=== PATIENT | male | born 1970 | race Caucasian/White ===

== ENCOUNTER 2019-06-15 10:10 | Inpatient (IN) ==
[2019-06-15] MEDS ORDERED: Piperacillin/Tazobactam 3.375 GM in 0.9 % Sodium Chloride Mini Bag 100 ML IVPB ONE (10:15)
--- NOTE | 2019-06-15 10:37 | Emergency Department Note ---
Disposition Clinical Impression: Cellulitis of left hand Disposition: Admitted As Inpatient Condition: Good Time of Disposition: 17:18 General Adult HPI - General Chief complaint: ED Recheck/Abnormal Lab/Rx Stated complaint: Left hand infection,S/P Surgery Time Seen by Provider: 06/15/19 10:15 Source: patient Limitations: no limitations - History of Present Illness HPI Narrative: 49 year old male presents to ED with concerns of left arm infection. Patient had a carpel tunnel release performed on May 28. Patient said procedure went well without complications. He followed up to have his sutures removed this past Friday and at that time there were no signs of infection. Over the weekend the left volar aspect of his arm became erythematous and swollen. He followed up with is primary care doctor yesterday who started the patient on antibiotics and told him to see the surgeon. Patient saw the surgeon this morning and after inspection was sent to ED for admission to hospital and subsequent OR for debridement. Patient states the area is painful, he denies fevers or chills. Pain Scale: 8 - Related Data Home Medications Medication Instructions Recorded Confirmed Bupropion HCl [Wellbutrin Xl] 300 mg PO QAM 03/26/19 06/15/19 Furosemide [Lasix] 80 mg PO BID 03/26/19 06/15/19 Lovastatin 40 mg PO HS 03/26/19 06/15/19 Omeprazole [PriLOSEC] 20 mg PO DAILY 03/26/19 06/15/19 Potassium Chloride [Klor-Con 10] 20 meq PO DAILY 03/26/19 06/15/19 Ramelteon [Rozerem] 8 mg PO HS PRN 03/26/19 06/15/19 Tizanidine HCl 4 mg PO TID PRN 03/26/19 06/15/19 Topiramate 50 mg PO BID 03/26/19 06/15/19 metOLazone [Zaroxolyn] 2.5 mg PO DAILY PRN 03/26/19 06/15/19 Diclofenac Sodium [Voltaren] 1 applic TP QID PRN 05/21/19 06/15/19 Fluticasone Propionate Nasal 1 spray NS DAILY PRN 05/21/19 06/15/19 [Flonase] Ibuprofen 800 mg PO TID PRN 05/21/19 06/15/19 Loratadine [Allergy Relief] 10 mg PO DAILY 05/21/19 06/15/19 Cephalexin [Keflex] 500 mg PO DAILY 06/15/19 06/15/19 Previous Rx's Medication Instructions Recorded Hydrocodone/Acetaminophen [Tarzan 1 each PO Q6H PRN 2 Days #8 tablet 05/28/19 5-325 Tablet] Allergies Allergy/AdvReac Type Severity Reaction Status Date / Time omeprazole Allergy Hives "in Verified 06/15/19 10:15 high doses" aspirin AdvReac Vomiting Verified 06/15/19 10:15 ibuprofen AdvReac Gastrointestinal Verified 06/15/19 10:15 Upset Past Medical History - Past Medical History Medical history: Reports: arthritis, GERD, hyperlipidemia, hypertension Surgical history: Reports: herniorrhaphy, vascular surgery, other Psychiatric history: Reports: anxiety, depression - Social History Smoking Status: Never smoker Smokeless Tobacco Status: No Alcohol use: Reports: none Drug use: Reports: none Physical Exam Extremity: Left volar aspect of forearm is erythematous and edematous from wrist extending up [address] of his forearm. Radial pulse +2/4 bilaterally. [employer] strength intact bilaterally. Movement of left digits are limited by edema and pain. Sensation intact bilaterally upper extremity. - General Limitations: no limitations General appearance: alert, in no apparent distress Course Vital Signs Temperature 98.9 F 06/15/19 10:12 Pulse Rate 87 06/15/19 10:12 Respiratory Rate 16 06/15/19 10:12 Blood Pressure 161/94 06/15/19 10:12 O2 Sat by Pulse Oximetry 97 06/15/19 10:12 Temperature 98.9 F 06/15/19 10:12 Pulse Rate 87 06/15/19 10:12 Respiratory Rate 16 06/15/19 10:12 Blood Pressure 161/94 06/15/19 10:12 O2 Sat by Pulse Oximetry 97 06/15/19 10:12 Oxygen Delivery Oxygen Delivery Room Air Medical Decision Making - Lab Data Result diagrams: 06/15/19 10:43 06/15/19 10:43
[2019-06-15 11:02] LABS: Basophils # 0.1 K/mcL (0.0-0.2); Basophils % 0.4 %; Eosinophils # 0.1 K/mcL (0.0-0.6); Hemoglobin 14.7 g/dL (12.9-16.9); Immature Granulocytes % 0.6 % (0-4); Lymphocytes # 1.1 K/mcL (0.6-4.6); Lymphocytes % 7.8 %; Mean Corpuscular HGB Conc 32.7 g/dL (31.6-35.5); Mean Corpuscular Volume 85.7 fL (83.0-100.0); Monocytes % 7.4 %; Neutrophils # 11.5 K/mcL (1.6-8.9); Platelet Count 204 K/mcL (140-400); Red Blood Count 5.25 M/mcL (4.19-5.50); Red Cell Distribution Width 13.2 % (11.5-14.5); Segmented Neutrophils % 82.8 %; White Blood Count 13.9 K/mcL (4.3-11.1)
[2019-06-15 11:09] LABS: INR 1.1; Prothrombin Time 12.3 Seconds (9.4-12.1)
[2019-06-15 11:11] LABS: Activated Partial Thrombo Time 32.3 Seconds (26.0-36.0)
[2019-06-15 11:29] LABS: Alanine Aminotransferase 12 Units/L (7-52); Albumin 4.7 g/dL (3.5-5.7); Albumin/Globulin Ratio 1.5 (1.1-2.2); Alkaline Phosphatase 82 Units/L (34-104); Aspartate Amino Transferase 12 Units/L (13-39); BUN/Creatinine Ratio 19 (6-26); Bilirubin,Direct 0.2 mg/dL (0.0-0.2); Bilirubin,Indirect 0.8 mg/dL (0.0-1.2); Blood Urea Nitrogen 18 mg/dL (6-20); Calcium 10.2 mg/dL (8.6-10.3); Carbon Dioxide 24 mEq/L (23-29); Chloride 102 mEq/L (98-107); Globulin 3.2 g/dL (2.4-3.5); Glucose 138 mg/dL (70-105); Magnesium 2.2 mg/dL (1.6-2.6); Osmolality,Calculated 286 (280-300); Phosphorous 2.8 mg/dL (2.7-4.5); Potassium 3.7 mEq/L (3.5-5.1); Sodium 136 mEq/L (136-145); Total Protein 7.9 g/dL (6.4-8.9); Troponin I < 0.03 ng/mL (< 0.04); eGFR For African Americans > 60 (> 60); eGFR For Non-African Americans > 60 (> 60)
[2019-06-15] MEDS: 0.9 % Sodium Chloride 1,000 ML IVC SCH (11:40)
[2019-06-15] MEDS ORDERED: *HR* FentaNYL (PF) 100 MCG/2 ML VIAL IVP ONE ×2 (11:49→22:59)
--- NOTE | 2019-06-15 11:54 | Emergency Department Note ---
Disposition Clinical Impression: Cellulitis of left hand Disposition: Admitted As Inpatient Condition: Good Time of Disposition: 11:51 General Adult HPI - General Chief complaint: ED Recheck/Abnormal Lab/Rx Stated complaint: Left hand infection,S/P Surgery Time Seen by Provider: 06/15/19 10:15 Source: patient Limitations: no limitations Nursing Notes Reviewed: Yes Vital Signs Reviewed: Yes - History of Present Illness HPI Narrative: 49 year old male presnets to the ED with complaints of left hand cellulitis that has been progressively getting worse since his suture removal from left carpal release from Dr. Denney from last week. PAtient has been on outpatinet therapy with keflex and it has not been improving. Patient state that he is now having problems with moving his left hand and was seen by Dr. Denney today and asked to come to the ED for admission becaue he plans to do a debridement surigcally. He has been otheriwse chlls with subjective fevers Pain Scale: 8 - Related Data Home Medications Medication Instructions Recorded Confirmed Bupropion HCl [Wellbutrin Xl] 300 mg PO QAM 03/26/19 06/15/19 Furosemide [Lasix] 80 mg PO BID 03/26/19 06/15/19 Lovastatin 40 mg PO HS 03/26/19 06/15/19 Omeprazole [PriLOSEC] 20 mg PO DAILY 03/26/19 06/15/19 Potassium Chloride [Klor-Con 10] 20 meq PO DAILY 03/26/19 06/15/19 Ramelteon [Rozerem] 8 mg PO HS PRN 03/26/19 06/15/19 Tizanidine HCl 4 mg PO TID PRN 03/26/19 06/15/19 Topiramate 50 mg PO BID 03/26/19 06/15/19 metOLazone [Zaroxolyn] 2.5 mg PO DAILY PRN 03/26/19 06/15/19 Diclofenac Sodium [Voltaren] 1 applic TP QID PRN 05/21/19 06/15/19 Fluticasone Propionate Nasal 1 spray NS DAILY PRN 05/21/19 06/15/19 [Flonase] Ibuprofen 800 mg PO TID PRN 05/21/19 06/15/19 Loratadine [Allergy Relief] 10 mg PO DAILY 05/21/19 06/15/19 Cephalexin [Keflex] 500 mg PO DAILY 06/15/19 06/15/19 Previous Rx's Medication Instructions Recorded Hydrocodone/Acetaminophen [Blairs 1 each PO Q6H PRN 2 Days #8 tablet 05/28/19 5-325 Tablet] Allergies Allergy/AdvReac Type Severity Reaction Status Date / Time omeprazole Allergy Hives "in Verified 06/15/19 10:15 high doses" aspirin AdvReac Vomiting Verified 06/15/19 10:15 ibuprofen AdvReac Gastrointestinal Verified 06/15/19 10:15 Upset Constitutional: Reports: chills, weakness. Denies: fever, weight change Eyes: Denies: eye pain, eye discharge, vision change ENT ED: Denies: ear pain, throat pain, dental pain, hearing loss, epistaxis, congestion, dysphagia Cardiovascular: Denies: chest pain, palpitations, dyspnea on exertion, edema, syncope Respiratory: Denies: cough, dyspnea, wheezes, hemoptysis, stridor Gastrointestinal: Denies: abdominal pain, nausea, vomiting, diarrhea, c onstipation, hematemesis, melena, hematochezia Genitourinary: Denies: urgency, dysuria, frequency, hematuria Musculoskeletal: Reports: as per HPI. Denies: back pain, neck pain, arthralgia, myalgia Integumentary: Denies: rash, abrasion, lesions Neurological: Denies: headache, weakness, numbness, paresthesias, confusion, abnormal gait, vertigo Psychiatric: Denies: anxiety, depression, suicidal thoughts, homicidal thoughts, auditory hallucinations, visual hallucinations Endocrine: Denies: fatigue Hematological/Lymphatic: Denies: easy bleeding, easy bruising Allergic/Immunologic: Denies: facial swelling, urticaria Past Medical History - Past Medical History Medical history: Reports: arthritis, GERD, hyperlipidemia, hypertension Surgical history: Reports: herniorrhaphy, vascular surgery, other Psychiatric history: Reports: anxiety, depression - Social History Smoking Status: Never smoker Smokeless Tobacco Status: No Alcohol use: Reports: none Drug use: Reports: none Physical Exam - General Limitations: no limitations General appearance: alert, in no apparent distress - Head Head exam: atraumatic, normocephalic, normal inspection - Eye Eye exam: Present: normal appearance, PERRL, EOMI - Expanded Eye Exam Pupils: Bilateral: reactive - ENT ENT exam: normal exam, normal oropharynx, mucous membranes moist - Expanded ENT Exam External ear exam: Present: normal external inspection Mouth exam: Present: normal external inspection Teeth exam: Present: normal inspection Throat exam: Present: normal inspection - Neck Neck exam: Present: normal inspection, full ROM, trachea midline - Chest Chest inspection: Present: normal inspection, symmetric chest wall rise - Respiratory Respiratory exam: Present: normal lung sounds bilaterally - Cardiovascular Cardiovascular exam: Present: regular rate, normal rhythm, normal heart sounds - Abdominal Exam Abdominal exam: Present: soft, Non-Tender. Absent: tenderness, distention, guarding, rebound, rigidity - Extremities Exam Extremities exam: Present: normal inspection, full ROM. Absent: tenderness, pedal edema - Expanded Upper Extremity Exam Shoulder exam: Present: normal inspection, full ROM Arm exam: Present: normal inspection, full ROM Elbow exam: Present: normal inspection, full ROM Forearm/Wrist exam: Present: normal inspection, full ROM, tenderness, erythema Hand exam: Present: normal inspection, full ROM Vascular exam: Normal: capillary refill, radial pulse - Expanded Lower Extremity Exam Hip/Pelvis exam: Present: normal inspection, full ROM Upper leg exam: Present: normal inspection, full ROM Knee exam: Present: normal inspection, full ROM Lower leg exam: Present: normal inspection, full ROM Ankle exam: Present: normal inspection, full ROM Foot/toe exam: Present: normal inspection, full ROM Neurovascular/Tendon exam: Absent: motor deficit, sensory deficit, tendon deficit - Back Exam Back exam: Present: normal inspection, full ROM. Absent: tenderness - Neurological Exam Neurological exam: Present: alert, oriented X3 - Expanded Neurological Exam Patient oriented to: Present: person, place, time Coma Scale Eye Opening: Spontaneous Coma Scale Motor Response: Obeys Commands Coma Scale Verbal Response: Oriented Coma Scale Total: 15 - Psychiatric Psychiatric exam: Present: normal affect, normal mood - Skin Skin exam: Present: warm, dry, intact, normal color - Expanded Skin Exam 1 - draining erythematous cellutlis which has been marked with purple pen with induration and restriction in movement of flextion and extension of his digits secndary to pain, radial pulse strong Course Course Narrative: Dr. Antonio has given report to the charge nurse and state that he will see esther in consult with admission to medicine. I will obtain [facility] infectious labs and has his micro grew out liklely staph or MRSA will start vanc/zosyn - Consultations Consultation #1: disccused case with Dr. Anguiano who has accepted esther for admission. Time: 11:50 Vital Signs Temperature 98.9 F 06/15/19 10:12 Pulse Rate 87 06/15/19 10:12 Respiratory Rate 16 06/15/19 10:12 Blood Pressure 161/94 06/15/19 10:12 O2 Sat by Pulse Oximetry 97 06/15/19 10:12 Temperature 98.9 F 06/15/19 10:12 Pulse Rate 87 06/15/19 11:45 Respiratory Rate 20 06/15/19 11:45 Blood Pressure 142/78 06/15/19 11:45 O2 Sat by Pulse Oximetry 97 06/15/19 11:45 Oxygen Delivery Oxygen Delivery Room Air Medical Decision Making - Medical Records Medical records reviewed: Yes I reviewed the patient's medical records. - Lab Data Lab results reviewed: Yes I reviewed the patient's lab results. Result diagrams: 06/15/19 10:43 06/15/19 10:43 Lab Results 06/15/19 06/15/19 06/15/19 Range/Units 10:43 10:43 10:43 WBC 13.9 H (4.3-11.1) K/mcL RBC 5.25 (4.19-5.50) M/mcL Hgb 14.7 (12.9-16.9) g/dL Hct 45.0 (37.5-50.1) % MCV 85.7 (83.0-100.0) fL MCH 28.0 (28.0-33.3) pg MCHC 32.7 (31.6-35.5) g/dL RDW 13.2 (11.5-14.5) % Plt Count 204 (140-400) K/mcL MPV 12.0 (9.4-12.4) fL Immature Gran % 0.6 (0-4) % Seg Neutrophils % 82.8 % Lymphocytes % 7.8 % Monocytes % 7.4 % Eosinophils % 1.0 % Basophils % 0.4 % Neutrophils # 11.5 H (1.6-8.9) K/mcL Lymphocytes # 1.1 (0.6-4.6) K/mcL Monocytes # 1.0 (0.0-1.3) K/mcL Eosinophils # 0.1 (0.0-0.6) K/mcL Basophils # 0.1 (0.0-0.2) K/mcL PT 12.3 H (9.4-12.1) Seconds INR 1.1 APTT 32.3 (26.0-36.0) Seconds Sodium 136 (136-145) mEq/L Potassium 3.7 (3.5-5.1) mEq/L Chloride 102 (98-107) mEq/L Carbon Dioxide 24 (23-29) mEq/L BUN 18 (6-20) mg/dL Creatinine 0.97 (0.70-1.30) mg/dL Est GFR ( Amer) > 60 (> 60) Est GFR (Non-Af Amer) > 60 (> 60) BUN/Creatinine Ratio 19 (6-26) Glucose 138 H (70-105) mg/dL Est Mean Plasma Glucose mg/dl Hemoglobin A1c ( - 5.6) % Calculated Osmolality 286 (280-300) Lactic Acid (0.5-2.2) mmol/L Calcium 10.2 (8.6-10.3) mg/dL Phosphorus 2.8 (2.7-4.5) mg/dL Magnesium 2.2 (1.6-2.6) mg/dL Total Bilirubin 1.0 (0.3-1.0) mg/dL Direct Bilirubin 0.2 (0.0-0.2) mg/dL Indirect Bilirubin 0.8 (0.0-1.2) mg/dL AST 12 L (13-39) Units/L ALT 12 (7-52) Units/L Alkaline Phosphatase 82 (34-104) Units/L Troponin I < 0.03 (< 0.04) ng/mL Serum Total Protein 7.9 (6.4-8.9) g/dL Albumin 4.7 (3.5-5.7) g/dL Globulin 3.2 (2.4-3.5) g/dL Albumin/Globulin Ratio 1.5 (1.1-2.2) 06/15/19 06/15/19 Range/Units 10:43 10:43 WBC (4.3-11.1) K/mcL RBC (4.19-5.50) M/mcL Hgb (12.9-16.9) g/dL Hct (37.5-50.1) % MCV (83.0-100.0) fL MCH (28.0-33.3) pg MCHC (31.6-35.5) g/dL RDW (11.5-14.5) % Plt Count (140-400) K/mcL MPV (9.4-12.4) fL Immature Gran % (0-4) % Seg Neutrophils % % Lymphocytes % % Monocytes % % Eosinophils % % Basophils % % Neutrophils # (1.6-8.9) K/mcL Lymphocytes # (0.6-4.6) K/mcL Monocytes # (0.0-1.3) K/mcL Eosinophils # (0.0-0.6) K/mcL Basophils # (0.0-0.2) K/mcL PT (9.4-12.1) Seconds INR APTT (26.0-36.0) Seconds Sodium (136-145) mEq/L Potassium (3.5-5.1) mEq/L Chloride (98-107) mEq/L Carbon Dioxide (23-29) mEq/L BUN (6-20) mg/dL Creatinine (0.70-1.30) mg/dL Est GFR ( Amer) (> 60) Est GFR (Non-Af Amer) (> 60) BUN/Creatinine Ratio (6-26) Glucose (70-105) mg/dL Est Mean Plasma Glucose 128 mg/dl Hemoglobin A1c 6.1 H ( - 5.6) % Calculated Osmolality (280-300) Lactic Acid 0.7 (0.5-2.2) mmol/L Calcium (8.6-10.3) mg/dL Phosphorus (2.7-4.5) mg/dL Magnesium (1.6-2.6) mg/dL Total Bilirubin (0.3-1.0) mg/dL Direct Bilirubin (0.0-0.2) mg/dL Indirect Bilirubin (0.0-1.2) mg/dL AST (13-39) Units/L ALT (7-52) Units/L Alkaline Phosphatase (34-104) Units/L Troponin I (< 0.04) ng/mL Serum Total Protein (6.4-8.9) g/dL Albumin (3.5-5.7) g/dL Globulin (2.4-3.5) g/dL Albumin/Globulin Ratio (1.1-2.2) - Radiology Data Radiology results reviewed: Yes I reviewed the patient's radiology results. - EKG Data EKG #1 EKG attestation: Yes I reviewed and interpreted this EKG. EKG results narrative: NSR with rate of 51. NO STEMI. normal intervals, no change from10/16/15. 104
[2019-06-15] MEDS ORDERED: Naloxone 0.4 MG/ML INJ IVP PRN ×2 (11:59→22:59)
[2019-06-15] MEDS ORDERED: Ondansetron 4 MG/2 ML VIAL IVP PRN ×2 (11:59→22:59)
[2019-06-15] MEDS ORDERED: 0.9 % Sodium Chloride 1,000 ML IVC SCH (12:00)
[2019-06-15] MEDS ORDERED: tiZANidine 4 MG TABLET PO PRN ×2 (12:02→22:59)
[2019-06-15] MEDS ORDERED: Fluticasone Propionate Nasal 50 MCG/SPRAY BOTTLE NS PRN (12:02)
[2019-06-15] MEDS ORDERED: D5% in Water 1,000 ML IVC PRN ×2 (12:03→22:59)
[2019-06-15] MEDS ORDERED: Dextrose Gel 15 GM/37.5 ML TUBE PO PRN ×4 (12:03→22:59)
[2019-06-15] MEDS ORDERED: *HR* Dextrose 50 % in Water (Syg) 50 ML SYRINGE IVP PRN ×2 (12:03→22:59)
--- NOTE | 2019-06-15 12:06 | Internal Med History&Physical ---
Date of Encounter: 06/15/19 Time of Encounter: 11:50 Internal Medicine - H&P: HPI Chief complaint: L arm pain Admitted From: Emergency Dept Plans for Post Hospital Care: Home History of present illness: Mr. Orozco is a 49 year old male with hx chronic lymphedema presented to ED from ortho office due to swollen and painful L arm. Mr Orozco had L carpel tunnel surgery on 05/28. He had no significant issues during recovery. He followed up last Friday and had stitches removed. Starting Friday he noticed some vague swelling and pain in L arm as well as malaise. He felt feverish and chilled. Had appt with PCP Friday and cx taken. Started on PO Keflex. Followed up with ortho today and symptoms worse. Pus expressed from wound. Has pain down hand and up to elbow. Pt sent to ED for admission for IV abx and surgical debridement. At this time his complaints are pain in arm and hunger. Past Med Surg Social Fam HX - Past Medical History Medical history: arthritis, GERD, hyperlipidemia, hypertension Additional medical history: back degen., herniated disc. sleep apnea, neuropathy, lymphedema Psychiatric history: anxiety, depression - Past Surgical History Surgical History: herniorrhaphy, vascular surgery, other Additional surgical history: Spinal Cord Stimulator - Social History Smoking Status: Never smoker Smokeless Tobacco Status: No Alcohol use: none Drug use: none - Family History Mother Living Status: Hx Family Cardiac Disorders: No Hx Family Respiratory Disorders: No Hx Family Cancer: No Hx Family GI Disorders: No Hx Family Endocrine Disorder: No Hx Family Neuromuscular Disorders: No Hx Family Neurologic Disorders: No Hx Family HEENT Disorders: No Hx Family Autoimmune Disorders: No Father Hx Family Endocrine Disorder: Yes (Diabetes) Internal Medicine - H&P: Meds Bupropion HCl [Wellbutrin Xl] 300 mg PO QAM 03/26/19 [History] Furosemide [Lasix] 80 mg PO BID 03/26/19 [History] Lovastatin 40 mg PO HS 03/26/19 [History] Omeprazole [PriLOSEC] 20 mg PO DAILY 03/26/19 [History] Potassium Chloride [Klor-Con 10] 20 meq PO DAILY 03/26/19 [History] Ramelteon [Rozerem] 8 mg PO HS PRN 03/26/19 [History] Tizanidine HCl 4 mg PO TID PRN 03/26/19 [History] Topiramate 50 mg PO BID 03/26/19 [History] metOLazone [Zaroxolyn] 2.5 mg PO DAILY PRN 03/26/19 [History] Diclofenac Sodium [Voltaren] 1 applic TP QID PRN 05/21/19 [History] Fluticasone Propionate Nasal [Flonase] 1 spray NS DAILY PRN 05/21/19 [History] Ibuprofen 800 mg PO TID PRN 05/21/19 [History] Loratadine [Allergy Relief] 10 mg PO DAILY 05/21/19 [History] Hydrocodone/Acetaminophen [[place]ity 5-325 Tablet] 1 each PO Q6H PRN 2 Days #8 tablet 05/28/19 [Rx] Cephalexin [Keflex] 500 mg PO DAILY 06/15/19 [History] Allergy/AdvReac Type Severity Reaction Status Date / Time omeprazole Allergy Hives "in Verified 06/15/19 10:15 high doses" aspirin AdvReac Vomiting Verified 06/15/19 10:15 ibuprofen AdvReac Gastrointestinal Verified 06/15/19 10:15 Upset All Systems PM: A 10-system review of systems was performed and is negative for pertinent findings except as documented above in the HPI. - Constitutional Constitutional: chills, fever(s), malaise - EENT Eyes: no diplopia, no pain Ears: no decreased hearing Nose, mouth and throat: no dry mouth, no sinus pain - Cardiovascular Cardiovascular ROS IM: edema, no chest pain, no diaphoresis, no dyspnea, no dyspnea on exertion, no orthopnea, no paroxysmal nocturnal dyspnea - Respiratory Respiratory: no cough, no dyspnea, no dyspnea on exertion, no wheezing, no chest congestion - Gastrointestinal Gastrointestinal: no abdominal pain, no diarrhea, no nausea, no vomiting - Genitourinary Genitourinary ROS male: no difficulty urinating - Musculoskeletal Musculoskeletal ROS IM: joint swelling, limited range of motion - Integumentary Integumentary IM: erythema - Neurological Neurological ROS: no dizziness, no vertigo - Endocrine Endocrine IM: no excessive sweating - Hematologic/Lymphatic Hematologic/Lymphatic: no easy bleeding - Allergic/Immunologic Allergic/Immunologic: no itchy eyes - Constitutional Vitals: Temp Pulse Resp BP Pulse Ox 98.9 F 87 20 142/78 97 06/15/19 10:12 06/15/19 11:45 06/15/19 11:45 06/15/19 11:45 06/15/19 11:45 General appearance: Present: A&O X 3, answers questions appropriately Exam: See below - Head Head exam: Present: atraumatic, normocephalic - Eye Eye exam: Present: EOMI, conjuntiva pink - ENT ENT exam: Present: mucous membranes moist - Neck Neck exam general surgery: Present: normal inspection, supple. Absent: nuchal rigidity - Respiratory Respiratory exam: Present: CTAB. Absent: rales, rhonchi, wheezes - Cardiovascular Cardiovascular exam: Present: RRR. Absent: tachycardia - GI/Abdominal GI/Abdominal exam: Present: normal bowel sounds, soft. Absent: tenderness - Extremities Exam Extremities exam: Present: joint swelling, tenderness, warm Additional comments: LUE with edema to elbow. Erythema on forearm. Pain with movement of fingers and palpation of brachioradialis tendon. - Incison Incision: Present: draining, red, swollen, purulent - Neurological Exam Neurological exam: Present: alert, oriented X3, no focal deficits - Psychiatric Psychiatric exam: Present: normal affect, normal mood - Skin Skin exam: Present: erythema Internal Med - H&P Results - Labs CBC & Chem 7: 06/15/19 10:43 06/15/19 10:43 Labs: Short CBC 06/15/19 Range/Units 10:43 WBC 13.9 H (4.3-11.1) K/mcL Hgb 14.7 (12.9-16.9) g/dL Hct 45.0 (37.5-50.1) % Plt Count 204 (140-400) K/mcL Neutrophils # 11.5 H (1.6-8.9) K/mcL BMP 06/15/19 10:43 Sodium 136 Potassium 3.7 Chloride 102 Carbon Dioxide 24 BUN 18 Creatinine 0.97 Glucose 138 H Calcium 10.2 Cardiac Enzymes 06/15/19 Range/Units 10:43 Troponin I < 0.03 (< 0.04) ng/mL Liver Function 06/15/19 Range/Units 10:43 Total Bilirubin 1.0 (0.3-1.0) mg/dL Direct Bilirubin 0.2 (0.0-0.2) mg/dL AST 12 L (13-39) Units/L ALT 12 (7-52) Units/L Alkaline Phosphatase 82 (34-104) Units/L Albumin 4.7 (3.5-5.7) g/dL - Assessment and Plan (1) Suppurative tenosynovitis of flexor tendon of left hand Current Visit: Yes Status: Acute Assessment and plan: Pt presented to ED from ortho office due to drainage and swelling from recent surgical wound. Exam consistent with tenosynovitis Admit to med surg. IV Zosyn and Vanc - initial gram stain from yesterday showing gram positive cocci and has failed Keflex as outpatient. Most likely MRSA. NPO for surgery. Anticipate will need prolonged course of IV abx. Will be hospitalized greater than 2 midnights - placed inpatient status. (2) Lymphedema of both lower extremities Current Visit: No Status: Chronic Assessment and plan: Chronic issue (3) Cellulitis Current Visit: No Status: Acute Assessment and plan: Associated with wound infection. Qualifiers: Site of cellulitis: extremity Site of cellulitis of extremity: upper extremity Laterality: left Qualified Code(s): L03.114 - Cellulitis of left upper limb (4) Morbid obesity with BMI of 45.0-49.9, adult Current Visit: Yes Status: Chronic Assessment and plan: Chronic issue - Time Spent With Patient Total time spent is greater than 50% in coordination of care (as documented) at patient's floor/unit and/or counseling patient:
[2019-06-15 12:41] LABS: Estimated Average Glucose 128 mg/dl
[2019-06-15 15:02] LABS: C-Reactive Protein 236 mg/L (Less than 10)
[2019-06-15] MEDS ORDERED: Isovue-370 500 ML BOTTLE IVP ONE (15:23)
--- NOTE | 2019-06-15 16:17 | Electrocardiograph Report ---
[place] [id number] Test Date: 2019-06-15 Pat Name: Garrison Orozco Department: [id number] Room: 3A43 Gender: M [employer]: : [id number] Requested By: Georgia Rocha Order Number: [id number] Reading MD: Antonio Morrison Measurements Intervals [place] Rate: 90 P: 50 LA: 166 QRS: 28 QRSD: 100 T: 5 QT: 352 QTc: 431 Interpretive Statements Sinus rhythm Electronically Signed On 06-15-2019 16:16:14 EDT by Antonio Morrison
--- NOTE | 2019-06-15 16:40 | Orthopedics Progress Note ---
Date of Encounter: 06/15/19 Time of Encounter: 16:38 Subjective Interval history: S: Resting in bed comfortably Expected pain to the volar left forearm/wrist area O: Afebrile on the vital signs are stable Gross purulence emanating from the surgical wound Moderate generalized cellulitis to the volar wrist region to mid forearm The patient can actively flex and extend all digits, extend the thumb, cross the index and long fingers, make an okay sign, and oppose the thumb. The fingertips are all grossly sensate and well-perfused, and the radial artery pulse is 2+. A: Left volar wrist infection/abscess P: Plan is to proceed to the operating room for incision, drainage, irrigation, debridement of the left wrist volarly. The risks discussed included but were not limited to stiffness, bleeding, infection, blood clots, damage to neurovascular structures, tendons, ligaments, and bone. Also discussed was the risk of continued symptoms and possible need for further procedures. I did dis cuss the anesthesia risks including stroke, heart attack, and . I did discuss the reasonable, foreseeable postoperative course with the patient. The patient did wish to proceed and consent was obtained. I have reviewed each of the pertinent components of this chart and any other pertinent medical component(s) including but not limited to pertinent application of the chief complaint, history of present illness, current medication, medical history, allergies, family history, medical history, surgical history, social history, review of systems, vital signs, and any other portion of the pertinent patient medical record directly or indirectly involved with this patient care that is pertinent based on my medical decision process. ASHOK Watkins Objective Vital signs: Vital Signs Temp Pulse Resp BP Pulse Ox 06/15/19 15:38 98.5 F 77 16 130/82 97 06/15/19 11:45 87 20 142/78 97 06/15/19 10:12 98.9 F 87 16 161/94 97 Intake and Output 06/15/19 06/15/19 06/15/19 07:59 15:59 23:59 Intake Total 1000 / 1000 Balance 1000 / 1000 Intake: IV Fluids 1000 / 1000 0.9 % Sodium Chloride 1,000 ML 1000 / 1000 @ 999 mls/hr IVC .Q1H1M JOY Rx# :[id number] Zosyn 3.375 GM In 0.9 % Sodium 0 / 0 Chloride (Mini-Bag +) 100 ML @ 25 mls/hr IVPB ONCE ONE Rx#: [id number] Other: Weight 168.736 kg Patient Weight 06/15/19 23:59 Weight 168.736 kg - Labs CBC & BMP: 06/15/19 10:43 06/15/19 10:43 Labs: Abnormal lab results WBC 13.9 K/mcL (4.3-11.1) H 06/15/19 10:43 Neutrophils # 11.5 K/mcL (1.6-8.9) H 06/15/19 10:43 PT 12.3 Seconds (9.4-12.1) H 06/15/19 10:43 Glucose 138 mg/dL (70-105) H 06/15/19 10:43 Hemoglobin A1c 6.1 % (-5.6) H 06/15/19 10:43 AST 12 Units/L (13-39) L 06/15/19 10:43 C-Reactive Protein 236 mg/L (Less than 10) H 06/15/19 10:43 Consult Discharge Plan - Plan Referrals: Miir Cisneros, WATER SERVER [Primary Care Provider] -
[2019-06-15] MEDS ORDERED: Insulin LISPRO 300 UNITS/3 ML VIAL SQ SCH (18:00)
--- NOTE | 2019-06-15 18:15 | Anesthesia Evaluation PreOp ---
Date of Encounter: 06/15/19 Time of Encounter: 18:13 - Past History Planned Operation: I&D LEFT WRIST Cardiac History: CHF, HTN, Hyperlipidemia Pulmonary History: IVAN Dx (BIPAP) CREDENTIALER History: Other (ANXIETY, DEPRESSION, CERVICAL & LUMBAR DDD WITH CHRONIC PAIN) Other Medical History: GERD, Other (OBESITY) Anesthesia History: No Prior Anesthetic Complications, Past Anesthesia Alcohol Use: none Drug use: none Medications and Allergies Bupropion HCl [Wellbutrin Xl] 300 mg PO QAM 03/26/19 [History] Furosemide [Lasix] 80 mg PO BID 03/26/19 [History] Lovastatin 40 mg PO HS 03/26/19 [History] Omeprazole [PriLOSEC] 20 mg PO DAILY 03/26/19 [History] Potassium Chloride [Klor-Con 10] 20 meq PO DAILY 03/26/19 [History] Ramelteon [Rozerem] 8 mg PO HS PRN 03/26/19 [History] Tizanidine HCl 4 mg PO TID PRN 03/26/19 [History] Topiramate 50 mg PO BID 03/26/19 [History] metOLazone [Zaroxolyn] 2.5 mg PO DAILY PRN 03/26/19 [History] Diclofenac Sodium [Voltaren] 1 applic TP QID PRN 05/21/19 [History] Fluticasone Propionate Nasal [Flonase] 1 spray NS DAILY PRN 05/21/19 [History] Ibuprofen 800 mg PO TID PRN 05/21/19 [History] Loratadine [Allergy Relief] 10 mg PO DAILY 05/21/19 [History] Hydrocodone/Acetaminophen [Baker 5-325 Tablet] 1 each PO Q6H PRN 2 Days #8 tablet 05/28/19 [Rx] Cephalexin [Keflex] 500 mg PO DAILY 06/15/19 [History] Allergy/AdvReac Type Severity Reaction Status Date / Time omeprazole Allergy Hives "in Verified 06/15/19 10:15 high doses" aspirin AdvReac Vomiting Verified 06/15/19 10:15 ibuprofen AdvReac Gastrointestinal Verified 06/15/19 10:15 Upset - Meds/Allergy Pre-op Review Medications Reviewed: Yes Allergies Reviewed: Yes Beta Blockers on Current Med List: No Anesthesia Results - Labs 06/15/19 10:43 06/15/19 10:43 Anesthesia Exam Vital Signs/O2 Sat/Glucose, Most Recent Temp Pulse Resp BP Pulse Ox 98.5 F 77 16 130/82 97 06/15/19 15:38 06/15/19 15:38 06/15/19 15:38 06/15/19 15:38 06/15/19 15:38 Blood Glucose* 111 Weight: 169 KG - BMI 48 NPO (# of Hours): 8 - HEENT Mallampati: IV Teeth: Missing, Poor dentition - Cardiac Rhythm: Regular - Pulmonary Breath Sounds: bilateral Clear Anesthesia Assess/Plan ASA Score: 3 Anesthetic Plan: General Monitoring Plan: Standard Monitors Recovery Plan: PACU
[2019-06-15] MEDS ORDERED: *HR* FentaNYL (PF) 100 MCG/2 ML VIAL ONE (19:11)
[2019-06-15] MEDS ORDERED: *HR* Propofol 200 MG/20 ML VIAL IVP ONE (19:12)
[2019-06-15] MEDS ORDERED: Lidocaine -MPF 2% 2 ML VIAL ONE (19:13)
[2019-06-15] MEDS ORDERED: Piperacillin/Tazobactam 3.375 GM in 0.9 % Sodium Chloride Mini Bag 100 ML IVPB SCH (20:00)
[2019-06-15] MEDS ORDERED: Bupivacaine/EPI 1:200k 0.5%PF 10 ML VIAL ONE (20:42)
[2019-06-15] MEDS ORDERED: *HR* OxyCODONE Immed Rel 5 MG TABLET PO PRN (20:52)
[2019-06-15] MEDS ORDERED: Acetaminophen IV 1,000 MG/100 ML INFUS..BTL IVPB ONE ×2 (20:52→22:59)
[2019-06-15] MEDS ORDERED: *HR* HYDROmorphone (PF) 1 MG/ML SYRINGE IVP PRN ×2 (20:52→22:59)
[2019-06-15] MEDS ORDERED: *HR* Promethazine 25 MG/ML VIAL IVP PRN ×2 (20:52→22:59)
[2019-06-15] MEDS ORDERED: Albuterol 2.5 MG/3 ML NEBULIZER IH ONE ×2 (20:52→22:59)
[2019-06-15] MEDS ORDERED: Ondansetron 4 MG/2 ML VIAL IVP ONE ×2 (20:52→22:59)
[2019-06-15] MEDS ORDERED: Topiramate 25 MG TABLET PO SCH (21:00)
[2019-06-15] MEDS ORDERED: Ondansetron 4 MG/2 ML VIAL ONE (21:07)
[2019-06-15] MEDS ORDERED: *HR* HYDROMORPHONE 2 MG/ML VIAL ONE (21:08)
[2019-06-15] MEDS ORDERED: *HR* Heparin 5,000 UNIT/ML VIAL SQ SCH (22:00)
--- NOTE | 2019-06-15 22:21 | Orthopedic Operative Note ---
Date of procedure: 06/15/19 Procedure: OPERATIVE REPORT SURGEON: Esteban Denney MD PREOPERATIVE DIAGNOSIS: Postop infection after left endoscopic carpal tunnel release POSTOPERATIVE DIAGNOSIS: Left deep forearm abscess PROCEDURE: Incision, drainage, irrigation, debridement of the left forearm ANESTHESIA: Gen. anesthesia SPECIMENS: Forearm swabs for aerobic and anaerobic cultures PREOPERATIVE NOTE The surgical plan was reviewed with the patient. The risks, benefits, alternatives, and potential complications of this procedure were discussed with the patient including injury to veins, arteries, nerves, tendons, ligaments, and bone. Also discussed were the risks of infection, bleeding, pain, blood clots, the possible need for a blood transfusion, the possible need for further procedures, heart attack, stroke, and . Additional risks included need for further debridement. All of this was explained in simple terms, and the patient verbalized understanding and wished to proceed. Consent was given to proceed with surgery. PROCEDURE: The patient was seen in the preoperative holding area where the identify and the consent were confirmed. The left forearm was marked. Final questions were answered. The patient was brought back to the operating room and placed supine on the operating room table. A huddle was performed with the patient and all vital surgical team members confirming patient identity, the correct procedure, and the correct operative site. Gen. anesthesia was administered. The op erative extremity was prepped and draped in the usual sterile fashion. A surgical time out was performed immediately preceding the incision with all personnel in the operating room to confirm patient identity, the correct operative site and extremity, correct radiographic studies, availability of appropriate surgical equipment, and agreement on the planned procedure. The tourniquet was inflated without exsanguination. Incision was made over the old endoscopic carpal tunnel syndrome and extended longitudinally distally into the carpal tunnel and proximally into the mid volar forearm region over the area of maximal induration and redness. The subcutaneous tissue is quite indurated and dissection began more distally in the carpal tunnel region which was more normal skin. Indurated tissue was broken apart with tenotomy scissors more proximally in the volar forearm. The fascia was entered at the old endoscopic carpal tunnel release incision area and copious amounts of grossly purulent material was decompressed and this was swabbed for culture. The fascia was opened proximally or more purulent material was encountered. The fat superficial to the fascia was quite indurated and appeared unhealthy and was sharply excised. The median nerve was decompressed entirely in the distal forearm and through the carpal tunnel. It was healthy in appearance. The ulnar neurovascular bundle was also identified proximal to Guyon's canal and was found to be intact. The entire forearm and carpal tunnel region was copiously irrigated with 6 L of saline. The tourniquet was deflated and discreet bleeders were electrocauterized. The wound beds appeared clean at this point and the wound was closed loosely over a 0.5 inch [place] drain going into the forearm proximally and a 0.25 inch Juliana drain going into the wrist distally. So, sterile dressing was applied. The instrument, sponge, and needle counts were correct after wound closure. POST OPERATIVE PLAN: We will follow clinically with serial labs and serial exams. We will tentatively placed on the OR schedule tomorrow for second look I&D. Was there an lead assistant manager present: No Estimated blood loss (cc): 5
[2019-06-16] MEDS: 0.9 % Sodium Chloride 1,000 ML IVC SCH ×3 (00:20→10:46)
--- NOTE | 2019-06-16 00:24 | Anesthesia Evaluation Post Op ---
Date of Encounter: 06/16/19 Time of Encounter: 22:40 - Discharge PostOp Status: Transfer Patient to floor (Patient's vital signs have been reviewed. Patient is stable postoperatively and has adequately recovered from anesthesia. Patient is determined to have stable airway patency and respiratory function including respiratory rate and oxygen saturation. Patient has a stable heart rate, blood pressure and adequate hydration. Patients mental status is acceptable. Patients temperature is appropriate. Pain and nausea are adequately controlled)
[2019-06-16] MEDS: Insulin LISPRO 300 UNITS/3 ML VIAL SQ SCH ×6 (01:14→23:36)
[2019-06-16] MEDS: Piperacillin/Tazobactam 3.375 GM in 0.9 % Sodium Chloride Mini Bag 100 ML IVPB SCH ×3 (04:15→20:38)
[2019-06-16 05:33] LABS: Basophils # 0.1 K/mcL (0.0-0.2); Basophils % 0.4 %; Eosinophils # 0.2 K/mcL (0.0-0.6); Eosinophils % 1.8 %; Hematocrit 39.7 % (37.5-50.1); Immature Granulocytes % 0.5 % (0-4); Lymphocytes # 1.4 K/mcL (0.6-4.6); Lymphocytes % 11.9 %; Mean Corpuscular HGB Conc 31.2 g/dL (31.6-35.5); Mean Corpuscular Hemoglobin 27.7 pg (28.0-33.3); Mean Corpuscular Volume 88.8 fL (83.0-100.0); Mean Platelet Volume 11.3 fL (9.4-12.4); Monocytes # 0.9 K/mcL (0.0-1.3); Monocytes % 7.8 %; Neutrophils # 9.2 K/mcL (1.6-8.9); Platelet Count 188 K/mcL (140-400); Red Blood Count 4.47 M/mcL (4.19-5.50); Red Cell Distribution Width 13.2 % (11.5-14.5); Segmented Neutrophils % 77.6 %; White Blood Count 11.8 K/mcL (4.3-11.1)
[2019-06-16 05:38] LABS: Hemoglobin 12.4 g/dL (12.9-16.9)
[2019-06-16] MEDS: *HR* Heparin 5,000 UNIT/ML VIAL SQ SCH ×3 (05:54→20:39)
[2019-06-16 05:56] LABS: BUN/Creatinine Ratio 18 (6-26); Blood Urea Nitrogen 17 mg/dL (6-20); Calcium 8.9 mg/dL (8.6-10.3); Carbon Dioxide 23 mEq/L (23-29); Chloride 104 mEq/L (98-107); Glucose 108 mg/dL (70-105); Magnesium 2.2 mg/dL (1.6-2.6); Osmolality,Calculated 286 (280-300); Potassium 3.6 mEq/L (3.5-5.1); Sodium 137 mEq/L (136-145); eGFR For African Americans > 60 (> 60); eGFR For Non-African Americans > 60 (> 60)
--- NOTE | 2019-06-16 06:47 | Orthopedics Progress Note ---
Date of Encounter: 06/16/19 Time of Encounter: 06:47 Subjective Interval history: S: The patient is resting in bed comfortably without any new complaints. The left wrist and forearm feel much better O: Afebrile on the vital signs are stable The dressing is taken down and the erythema has significantly improved. No purulent drainage. Juliana drains are in place Neurovascularly intact distally White count and CRP has improved A: Left volar forearm abscess P: Due to the clinical improvement we will continue to monitor on IV antibiotics. NPO after midnight for possible second look I&D tomorrow if he clinically worsens. Follow cultures. Objective Vital signs: Vital Signs Temp Pulse Resp BP Pulse Ox 06/16/19 03:57 98.1 F 69 16 111/69 97 06/16/19 02:39 97 14 95/60 97 06/15/19 23:57 84 16 145/73 06/15/19 23:28 89 16 131/73 06/15/19 22:46 99.9 F H 84 18 146/70 93 06/15/19 22:37 92 18 135/76 94 06/15/19 22:27 92 18 130/69 97 06/15/19 22:17 98.4 F 84 18 139/87 97 06/15/19 15:38 98.5 F 77 16 130/82 97 06/15/19 11:45 87 20 142/78 97 06/15/19 10:12 98.9 F 87 16 161/94 97 Intake and Output 06/15/19 06/15/19 06/16/19 15:59 23:59 07:59 Intake Total 1000 / 1000 100 / 100 Output Total 5 / 5 150 / 150 Balance 1000 / 995 -5 / 995 -50 / -50 Intake: IV Fluids 1000 / 1000 100 / 100 0.9 % Sodium Chloride 1,000 ML 1000 / 1000 @ 999 mls/hr IVC .Q1H1M JOY Rx# :[id number] Ofirmev 1,000 mg/100 ml 1,000 100 / 100 mg In 100 ml @ 400 mls/hr IVPB ONCE ONE Rx#:[id number] Zosyn 3.375 GM In 0.9 % Sodium 0 / 0 Chloride (Mini-Bag +) 100 ML @ 25 mls/hr IVPB ONCE ONE Rx#: [id number] Output: Urine 150 / 150 Estimated Blood Loss Other: Weight 168.736 kg Blood Glucose* 117 114 - Labs CBC & BMP: 06/16/19 05:18 06/16/19 05:18 Labs: Abnormal lab results WBC 11.8 K/mcL (4.3-11.1) H 06/16/19 05:18 Hgb 12.4 g/dL (12.9-16.9) L D 06/16/19 05:18 MCH 27.7 pg (28.0-33.3) L 06/16/19 05:18 MCHC 31.2 g/dL (31.6-35.5) L 06/16/19 05:18 Neutrophils # 9.2 K/mcL (1.6-8.9) H 06/16/19 05:18 ESR 69 mm/hr (0-10) H 06/16/19 05:18 PT 12.3 Seconds (9.4-12.1) H 06/15/19 10:43 Glucose 108 mg/dL (70-105) H 06/16/19 05:18 POC Glucose 111 mg/dL (70-99) H 06/15/19 17:09 Hemoglobin A1c 6.1 % (-5.6) H 06/15/19 10:43 AST 12 Units/L (13-39) L 06/15/19 10:43 C-Reactive Protein 236 mg/L (Less than 10) H 06/15/19 10:43 Consult Discharge Plan - Plan Referrals: Miri Cisneros, BUILDING MAINTENANCE SUPERINTENDENT [Primary Care Provider] -
[2019-06-16] MEDS: Fluticasone Propionate Nasal 50 MCG/SPRAY BOTTLE NS PRN (08:06)
[2019-06-16] MEDS: Loratadine 10 MG TABLET PO SCH (08:07)
[2019-06-16] MEDS: BuPROPion XL (24 HR) 150 MG TABLET PO SCH (08:07)
[2019-06-16] MEDS: Topiramate 25 MG TABLET PO SCH ×2 (08:08→20:39)
[2019-06-16] MEDS ORDERED: Loratadine 10 MG TABLET PO SCH (09:00)
[2019-06-16] MEDS ORDERED: BuPROPion XL (24 HR) 150 MG TABLET PO SCH (09:00)
--- NOTE | 2019-06-16 09:06 | Internal Med Progress Note ---
<Lj Anguiano - Last Filed: 06/16/19 17:25> Hospitalist Progress Note - Encounter Date of Encounter: 06/16/19 - Exam Vitals: Temp Pulse Resp BP Pulse Ox 98.4 F 77 16 138/71 95 06/16/19 15:17 06/16/19 15:17 06/16/19 15:17 06/16/19 15:17 06/16/19 15:17 - Assessment and Plan (1) Suppurative tenosynovitis of flexor tendon of left hand Current Visit: Yes Status: Acute (2) Lymphedema of both lower extremities Current Visit: No Status: Chronic (3) Cellulitis Current Visit: No Status: Acute (4) Morbid obesity with BMI of 45.0-49.9, adult Current Visit: Yes Status: Chronic - Time Spent with Patient Total time spent is greater than 50% in coordination of care (as documented) at patient's floor/unit and/or counseling patient: Internal Medicine: Result - Labs CBC & Chem 7: 06/16/19 05:18 06/16/19 05:18 Labs: Short CBC 06/16/19 Range/Units 05:18 WBC 11.8 H (4.3-11.1) K/mcL Hgb 12.4 L D (12.9-16.9) g/dL Hct 39.7 (37.5-50.1) % Plt Count 188 (140-400) K/mcL Neutrophils # 9.2 H (1.6-8.9) K/mcL BMP 06/16/19 05:18 Sodium 137 Potassium 3.6 Chloride 104 Carbon Dioxide 23 BUN 17 Creatinine 0.92 Glucose 108 H Calcium 8.9 - ABG Interpretation ABG results: PT/INR, D-dimer PT 12.3 Seconds (9.4-12.1) H 06/15/19 10:43 - Impressions Impressions Upper Extremity CT 06/15/19 15:23 IMPRESSION: 1. Circumferential subcutaneous edema of the forearm, most notable along the volar surface of the distal forearm. No formed fluid collection or abscess. Please correlate with clinical symptoms of cellulitis. 2. No evidence of soft tissue gas or radiopaque foreign body. 3. No acute osseous abnormality. 4. Left axillary adenopathy. Given associated symptoms, this may be a reactive node. 5. Mild circumferential thickening of the distal esophagus. Differential includes esophagitis. If patient has associated symptoms, consider further evaluation with endoscopy. D/ / 06/15/2019 16:53:13 Alex Haider MD / Joelle Rogers Interpreting Provider: Alex Haider MD Consult Discharge Plan - Plan Referrals: Miri Cisneros, CONFIDENTIAL INVESTIGATOR [Primary Care Provider] - - Attending Attestation I examined this patient and my medical decision-making was reviewed with the Resident Physician on 06/16/19. I agree with the documented findings, disposition and treatment plan as described except to the extent set forth below. Mr Orozco is currently hospitalized for acute infection L arm. He is s/p I&D. He remains moderate to high risk due to potential for worsening clinical status. Mr Orozco had I&D last night. Today he is doing better. No fever or chills. No other new issues. Exam Alert Comfortable EOMI. NC. Mucus membranes moist Neck supple Not tachycardic No wheeze Abd soft Chronic LE edema More movement of L hand No rash I/P 1. Abscess L arm - continue IV abx - cx with MRSA as outpatient Further diagnoses and plan as above. <Jr Luciano S - Last Filed: 06/16/19 19:37> Hospitalist Progress Note - Encounter Date of Encounter: 06/16/19 Time of Encounter: 09:06 - Subjective Interval History: Mr. Orozco is a 49-year-old male who is being admitted to our service for a postop infection following left carpal tunnel surgery on 05/28 Patient is a 49-year-old male with past medical history of chronic lymphedema, arthritis, GERD, hypertension, hyperlipidemia, degenerative spine disease, herniated disc, IVAN, neuropathy, who underwent left carpal tunnel surgery on 05/28. He had the stitches removed on 06/11. He has been expressing swelling and pain since 06/13. He was seen at his PCPs office on 06/14, at which time. Cultures were taken. He was subsequently seen by his orthopedic surgeon on 06/15, who was able to express purulent material from the wound, and noted significant edema and erythema and pain. He was taken for incision and drainage, irrigation and debridement of the wound with Dr. Denney yesterday. And reports he is doing well at this time. He reports ongoing pain in his left forearm with tenderness to the elbow, however, notes that this is significantly improved from yesterday. He has regained the ability to move his fingers with the decrease in edema and pain experienced after the procedure. He denies any headache, dizziness, nausea, vomiting, chest pain, difficulty breathing, cough, blurry vision, double vision, ear pain, difficulty swallowing or speaking, numbness/tingling/weakness anywhere, diarrhea, hematochezia, melena, dysuria. Of note, patient did not know he was diabetic, was found to have elevated blood sugars and an elevated A1c. He has been made aware of the significance of these results. - Exam Vitals: Temp Pulse Resp BP Pulse Ox 98.5 F 72 16 115/67 98 06/16/19 08:05 06/16/19 08:05 06/16/19 08:05 06/16/19 08:05 06/16/19 08:23 Exam: Gen: Awake and alert, no acutedistress, not well kempt, morbidly obese Head: Normocephalic, atraumatic Eyes: EOMI, no scleral icterus ENT: Mucous membranes moist, no oropharyngeal erythema CV: S1-S2 present, regular at a rate of approximately 70, no murmurs rubs or gallops Pulm: CTAB, not tachypneic, no respiratory distress, no increased work of breathing Abd: Soft, nontender to palpation, very obese, nondistended, no rebound or guarding. Bowel sounds present EXT: Grossly intact motor strength in all 4 extremities, no lower extremity edema, no distal cyanosis or pallor Skin: Warm, dry, no new rashes or lesions noted. some lower extremity discoloration that may represent chronic stasis dermatitis noted. Chronic lower extremity lymphedema present Neuro: Cranial nerves II-XII grossly intact, no focal nurologic deficits Psych: normal mood and affect, Answers questions with intact judgement, appropriate insight, and linear thought Surgical dressing in place covering the surgical site. Appears clean and dry. Capillary refill normal in all left fingers. Sensation not diminished. Slight tenderness to palpation up to the elbow. Full range of motion of the elbow. Splint preventing range of motion of the wrist - Assessment and Plan (1) Suppurative tenosynovitis of flexor tendon of left hand Current Visit: Yes Status: Acute Assessment and Plan: Status post incision, drainage, irrigation, debridement. Postop day 1 Pain significantly improved Subjective fevers, present on admission are resolved * Continue antibiotics per orthopedics * Nothing by mouth after midnight for possible surgical reevaluation tomorrow * Continue current pain management regimen (2) Chronic venous hypertension w/ulcer and inflammation involv both sides Current Visit: No Status: Resolved Assessment and Plan: Continue wound care as needed (3) Lymphedema of both lower extremities Current Visit: No Status: Chronic (4) Morbid obesity with BMI of 45.0-49.9, adult Current Visit: Yes Status: Chronic (5) Diabetes Current Visit: Yes Status: Acute DVT Prophylaxis: SCDs in place Subcutaneous heparin - Time Spent with Patient Total time spent is greater than 50% in coordination of care (as documented) at patient's floor/unit and/or counseling patient: Internal Medicine: Result - Labs CBC & Chem 7: 06/16/19 05:18 06/16/19 05:18 Labs: Short CBC 06/15/19 06/16/19 Range/Units 10:43 05:18 WBC 13.9 H 11.8 H (4.3-11.1) K/mcL Hgb 14.7 12.4 L D (12.9-16.9) g/dL Hct 45.0 39.7 (37.5-50.1) % Plt Count 204 188 (140-400) K/mcL Neutrophils # 11.5 H 9.2 H (1.6-8.9) K/mcL BMP 06/15/19 06/16/19 10:43 05:18 Sodium 136 137 Potassium 3.7 3.6 Chloride 102 104 Carbon Dioxide 24 23 BUN 18 17 Creatinine 0.97 0.92 Glucose 138 H 108 H Calcium 10.2 8.9 Cardiac Enzymes 06/15/19 Range/Units 10:43 Troponin I < 0.03 (< 0.04) ng/mL Liver Function 06/15/19 Range/Units 10:43 Total Bilirubin 1.0 (0.3-1.0) mg/dL Direct Bilirubin 0.2 (0.0-0.2) mg/dL AST 12 L (13-39) Units/L ALT 12 (7-52) Units/L Alkaline Phosphatase 82 (34-104) Units/L Albumin 4.7 (3.5-5.7) g/dL - ABG Interpretation ABG results: PT/INR, D-dimer PT 12.3 Seconds (9.4-12.1) H 06/15/19 10:43 - Impressions Impressions Upper Extremity CT 06/15/19 15:23 IMPRESSION: 1. Circumferential subcutaneous edema of the forearm, most notable along the volar surface of the distal forearm. No formed fluid collection or abscess. Please correlate with clinical symptoms of cellulitis. 2. No evidence of soft tissue gas or radiopaque foreign body. 3. No acute osseous abnormality. 4. Left axillary adenopathy. Given associated symptoms, this may be a reactive node. 5. Mild circumferential thickening of the distal esophagus. Differential includes esophagitis. If patient has associated symptoms, consider further evaluation with endoscopy. D/ / 06/15/2019 16:53:13 Alex Haider MD / Joelle Rogers Interpreting Provider: Alex Haider MD <Lj Anguiano - Last Filed: 06/16/19 17:25> (3) Cellulitis Qualifiers: Site of cellulitis: extremity Site of cellulitis of extremity: upper extremity Laterality: left Qualified Code(s): L03.114 - Cellulitis of left upper limb <Jr Luciano - Last Filed: 06/16/19 19:37> (5) Diabetes Qualifiers: Diabetes mellitus type: type 2 Diabetes mellitus complication status: with hyperglycemia Qualified Code(s): E11.65 - Type 2 diabetes mellitus with hyperglycemia
[2019-06-16 21:34] LABS: Basophils # 0.1 K/mcL (0.0-0.2); Basophils % 0.6 %; Eosinophils # 0.2 K/mcL (0.0-0.6); Eosinophils % 2.3 %; Hematocrit 41.6 % (37.5-50.1); Hemoglobin 13.1 g/dL (12.9-16.9); Immature Granulocytes % 0.4 % (0-4); Lymphocytes % 11.3 %; Mean Corpuscular HGB Conc 31.5 g/dL (31.6-35.5); Mean Corpuscular Hemoglobin 27.7 pg (28.0-33.3); Mean Corpuscular Volume 87.9 fL (83.0-100.0); Mean Platelet Volume 12.1 fL (9.4-12.4); Monocytes # 0.6 K/mcL (0.0-1.3); Platelet Count 220 K/mcL (140-400); Red Blood Count 4.73 M/mcL (4.19-5.50); Segmented Neutrophils % 78.4 %; White Blood Count 8.9 K/mcL (4.3-11.1)
[2019-06-17 04:54] LABS: Basophils # 0.1 K/mcL (0.0-0.2); Basophils % 0.8 %; Eosinophils # 0.3 K/mcL (0.0-0.6); Eosinophils % 3.5 %; Hematocrit 40.5 % (37.5-50.1); Hemoglobin 12.6 g/dL (12.9-16.9); Immature Granulocytes % 0.7 % (0-4); Lymphocytes # 1.7 K/mcL (0.6-4.6); Lymphocytes % 18.5 %; Mean Corpuscular HGB Conc 31.1 g/dL (31.6-35.5); Mean Corpuscular Hemoglobin 27.6 pg (28.0-33.3); Mean Corpuscular Volume 88.6 fL (83.0-100.0); Mean Platelet Volume 11.7 fL (9.4-12.4); Monocytes # 0.7 K/mcL (0.0-1.3); Monocytes % 7.2 %; Neutrophils # 6.3 K/mcL (1.6-8.9); Platelet Count 231 K/mcL (140-400); Red Blood Count 4.57 M/mcL (4.19-5.50); Red Cell Distribution Width 13.2 % (11.5-14.5); Segmented Neutrophils % 69.3 %; White Blood Count 9.1 K/mcL (4.3-11.1)
[2019-06-17] MEDS: Piperacillin/Tazobactam 3.375 GM in 0.9 % Sodium Chloride Mini Bag 100 ML IVPB SCH ×3 (04:56→20:22)
[2019-06-17 05:15] LABS: Alanine Aminotransferase 10 Units/L (7-52); Albumin 3.8 g/dL (3.5-5.7); Albumin/Globulin Ratio 1.3 (1.1-2.2); Alkaline Phosphatase 68 Units/L (34-104); Aspartate Amino Transferase 9 Units/L (13-39); BUN/Creatinine Ratio 14 (6-26); Bilirubin,Total 0.5 mg/dL (0.3-1.0); Blood Urea Nitrogen 14 mg/dL (6-20); Calcium 8.6 mg/dL (8.6-10.3); Carbon Dioxide 20 mEq/L (23-29); Chloride 109 mEq/L (98-107); Globulin 2.9 g/dL (2.4-3.5); Glucose 109 mg/dL (70-105); Osmolality,Calculated 287 (280-300); Potassium 3.8 mEq/L (3.5-5.1); Sodium 138 mEq/L (136-145); Total Protein 6.7 g/dL (6.4-8.9); eGFR For African Americans > 60 (> 60); eGFR For Non-African Americans > 60 (> 60)
[2019-06-17] MEDS: *HR* Heparin 5,000 UNIT/ML VIAL SQ SCH ×3 (06:12→20:23)
--- NOTE | 2019-06-17 07:53 | Orthopedics Progress Note ---
Date of Encounter: 06/17/19 Time of Encounter: 07:51 Subjective Interval history: S: Continued improvement in pain to the left volar forearm. No new injuries or complaints. O: Afebrile on the vital signs are stable Continued improvement of the cellulitis, resolving nicely. Minimal serosanguineous drainage. [place] drains pulled. The patient can actively flex and extend all digits, extend the thumb, cross the index and long fingers, make an okay sign, and oppose the thumb. The fingertips are all grossly sensate and well-perfused, and the radial artery pulse is 2+. A: Post I&D of left volar wrist abscess P: At this point the patient continues to improve clinically. White blood cell count and CRP are trending down. My recommendation is for continued IV in about at least for another 24 hours with possible transition to oral antibiotics tomorrow if he continues to clinically improve. Objective Vital signs: Vital Signs Temp Pulse Resp BP Pulse Ox 06/17/19 07:14 99.1 F 83 16 128/76 95 06/17/19 04:06 98.3 F 88 15 141/73 96 06/16/19 23:10 98.9 F 80 16 137/80 95 06/16/19 19:42 98.5 F 83 16 146/79 95 06/16/19 15:17 98.4 F 77 16 138/71 95 06/16/19 12:36 98.5 F 76 15 124/77 97 06/16/19 08:23 98 06/16/19 08:05 98.5 F 72 16 115/67 98 Intake and Output 06/16/19 06/16/19 06/17/19 15:59 23:59 07:59 Intake Total 1100 / 1910 710 / 1910 450 / 450 Output Total 400 / 1000 450 / 1000 Balance 700 / 910 260 / 910 450 / 450 Intake: IV Fluids 1100 / 1550 350 / 1550 450 / 450 0.9 % Sodium Chloride 1,000 ML 1000 / 1000 @ 75 mls/hr IVC .[id number] JOY Rx #:[id number] Zosyn 3.375 GM In 0.9 % Sodium 100 / 200 100 / 200 200 / 200 Chloride (Mini-Bag +) 100 ML @ 25 mls/hr IVPB Q8H JOY Rx#: [id number] Vancocin 1,500 MG In 0.9 % 250 / 250 250 / 250 Sodium Chloride 250 ML @ 166.67 mls/hr IVPB Q12H [facility] Rx#: [id number] Oral 360 / 360 Output: Urine 400 / 1000 450 / 1000 Other: Meal Dinner Percent of Meal Consumed 95% Blood Glucose* 166 129 115 - Labs CBC & BMP: 06/17/19 03:54 06/17/19 03:54 Labs: Abnormal lab results WBC 11.8 K/mcL (4.3-11.1) H 06/16/19 05:18 Hgb 12.6 g/dL (12.9-16.9) L 06/17/19 03:54 MCH 27.6 pg (28.0-33.3) L 06/17/19 03:54 MCHC 31.1 g/dL (31.6-35.5) L 06/17/19 03:54 Neutrophils # 9.2 K/mcL (1.6-8.9) H 06/16/19 05:18 ESR 76 mm/hr (0-10) H 06/16/19 20:11 PT 12.3 Seconds (9.4-12.1) H 06/15/19 10:43 Chloride 109 mEq/L (98-107) H 06/17/19 03:54 Carbon Dioxide 20 mEq/L (23-29) L 06/17/19 03:54 Glucose 109 mg/dL (70-105) H 06/17/19 03:54 POC Glucose 129 mg/dL (70-99) H 06/16/19 16:46 Hemoglobin A1c 6.1 % (-5.6) H 06/15/19 10:43 AST 9 Units/L (13-39) L 06/17/19 03:54 C-Reactive Protein 166 mg/L (Less than 10) H 06/16/19 20:11 Consult Discharge Plan - Plan Referrals: Miri Cisneros, SUPERVISOR BONDING [Primary Care Provider] -
[2019-06-17] MEDS: Insulin LISPRO 300 UNITS/3 ML VIAL SQ SCH ×4 (08:40→20:34)
[2019-06-17] MEDS: BuPROPion XL (24 HR) 150 MG TABLET PO SCH (08:41)
[2019-06-17] MEDS: Loratadine 10 MG TABLET PO SCH (08:42)
[2019-06-17] MEDS: Topiramate 25 MG TABLET PO SCH ×2 (08:42→20:22)
--- NOTE | 2019-06-17 13:24 | Internal Med Progress Note ---
<Jr Luciano S - Last Filed: 06/17/19 13:29> Hospitalist Progress Note - Encounter Date of Encounter: 06/17/19 Time of Encounter: 08:00 - Subjective Interval History: Mr. Orozco is a 49-year-old male admitted to our service on 06/15 for post- operative infection. He is doing well today, reporting that he has some increased pain after ortho removed the drain from his surgical site. Overall, his pain is still well controlled. He reports no fevers or chills, reports normal sensation, without any other new complaints. - Exam Vitals: Temp Pulse Resp BP Pulse Ox 98.3 F 83 16 123/80 96 06/17/19 10:59 06/17/19 07:14 06/17/19 07:14 06/17/19 10:59 06/17/19 10:59 Exam: Gen: Awake and alert, no acute distress, not well kempt, morbidly obese, in better spirits than yesterday Head: Normocephalic, atraumatic Eyes: EOMI, no scleral icterus ENT: Mucous membranes moist, no oropharyngeal erythema CV: S1-S2 present, no murmurs rubs or gallops Pulm: CTAB, not tachypneic, no respiratory distress, no increased work of breathing Abd: Soft, nontender to palpation, very obese, nondistended, no rebound or guarding. Bowel sounds present EXT: Grossly intact motor strength in all 4 extremities, chronic lower extremity edema, no distal cyanosis or pallor Skin: Warm, dry, no new rashes or lesions noted. some lower extremity discoloration that may represent chronic stasis dermatitis noted. Chronic lower extremity lymphedema present Neuro: Cranial nerves II-XII grossly intact, no focal neurologic deficits Psych: normal mood and affect, Answers questions with intact judgment, appropriate insight, and linear thought Surgical dressing in place covering the surgical site. Appears clean and dry. Capillary refill normal in all left fingers. Sensation not diminished. Slight tenderness to palpation up to the elbow. Full range of motion of the elbow. Splint preventing range of motion of the wrist - Assessment and Plan (1) Suppurative tenosynovitis of flexor tendon of left hand Current Visit: Yes Status: Acute Assessment and Plan: Status post incision, drainage, irrigation, debridement. Postop day 2 Pain slightly worse after drain removal Subjective fevers present on admission are resolved * Continue antibiotics per orthopedics for 24 more hours * Continue current pain management regimen * consider discharge to home tomorrow with wound care/ortho follow-up (2) Lymphedema of both lower extremities Current Visit: No Status: Chronic Assessment and Plan: discussed with patient today, he states his lymphedema is significantly improved with his feet elevated, and that he is able to ambulate fine. (3) Morbid obesity with BMI of 45.0-49.9, adult Current Visit: Yes Status: Chronic Assessment and Plan: consider outpatient weight-management follow-up (4) Diabetes Current Visit: Yes Status: Acute Assessment and Plan: Patient was not aware he was a diabetic, and was not on any medication before coming in. * continue SSI while inpatient * consult with pharmacy for plan to manage sugars until he can see PCP/endoc rinology * outpatient follow up to be arranged with either PCP or endocrinology DVT Prophylaxis: Subcutaneous heparin - Summary of Assessment and Plan Summary of Assessment and Plan: * IV antibiotics today, transition to PO tomorrow * SSI * SQH * possible d/c tomorrow - Time Spent with Patient Total time spent is greater than 50% in coordination of care (as documented) at patient's floor/unit and/or counseling patient: Internal Medicine: Result - Labs CBC & Chem 7: 06/17/19 03:54 06/17/19 03:54 Labs: Short CBC 06/16/19 06/17/19 Range/Units 20:11 03:54 WBC 8.9 9.1 (4.3-11.1) K/mcL Hgb 13.1 12.6 L (12.9-16.9) g/dL Hct 41.6 40.5 (37.5-50.1) % Plt Count 220 231 (140-400) K/mcL Neutrophils # 7.0 6.3 (1.6-8.9) K/mcL BMP 06/17/19 03:54 Sodium 138 Potassium 3.8 Chloride 109 H Carbon Dioxide 20 L BUN 14 Creatinine 0.99 Glucose 109 H Calcium 8.6 Liver Function 06/17/19 Range/Units 03:54 Total Bilirubin 0.5 (0.3-1.0) mg/dL AST 9 L (13-39) Units/L ALT 10 (7-52) Units/L Alkaline Phosphatase 68 (34-104) Units/L Albumin 3.8 (3.5-5.7) g/dL - ABG Interpretation ABG results: PT/INR, D-dimer PT 12.3 Seconds (9.4-12.1) H 06/15/19 10:43 Consult Discharge Plan - Plan Referrals: Miri Cisneros, NATIONAL ACCOUNTS RECRUITER [Primary Care Provider] - <Lj Anguiano - Last Filed: 06/17/19 17:48> Hospitalist Progress Note - Encounter Date of Encounter: 06/17/19 - Exam Vitals: Temp Pulse Resp BP Pulse Ox 98.1 F 84 16 180/73 97 06/17/19 16:20 06/17/19 16:20 06/17/19 16:20 06/17/19 16:20 06/17/19 16:20 - Assessment and Plan (1) Suppurative tenosynovitis of flexor tendon of left hand Current Visit: Yes Status: Acute (2) Lymphedema of both lower extremities Current Visit: No Status: Chronic (3) Cellulitis Current Visit: No Status: Acute (4) Morbid obesity with BMI of 45.0-49.9, adult Current Visit: Yes Status: Chronic - Time Spent with Patient Total time spent is greater than 50% in coordination of care (as documented) at patient's floor/unit and/or counseling patient: Internal Medicine: Result - Labs CBC & Chem 7: 06/17/19 03:54 06/17/19 03:54 Labs: Short CBC 06/16/19 06/17/19 Range/Units 20:11 03:54 WBC 8.9 9.1 (4.3-11.1) K/mcL Hgb 13.1 12.6 L (12.9-16.9) g/dL Hct 41.6 40.5 (37.5-50.1) % Plt Count 220 231 (140-400) K/mcL Neutrophils # 7.0 6.3 (1.6-8.9) K/mcL BMP 06/17/19 03:54 Sodium 138 Potassium 3.8 Chloride 109 H Carbon Dioxide 20 L BUN 14 Creatinine 0.99 Glucose 109 H Calcium 8.6 Liver Function 06/17/19 Range/Units 03:54 Total Bilirubin 0.5 (0.3-1.0) mg/dL AST 9 L (13-39) Units/L ALT 10 (7-52) Units/L Alkaline Phosphatase 68 (34-104) Units/L Albumin 3.8 (3.5-5.7) g/dL - ABG Interpretation ABG results: PT/INR, D-dimer PT 12.3 Seconds (9.4-12.1) H 06/15/19 10:43 - Attending Attestation I examined this patient and my medical decision-making was reviewed with the Resident Physician on 06/17/19. I agree with the documented findings, disposition and treatment plan as described except to the extent set forth below. Mr Orozco is currently admitted for abscess L forearm. He remains moderate to high risk due to potential for worsening clinical status. Mr Orozco is having more pain and swelling now. Drain removed this AM. No fever. No CP or SOB. No other issue. Exam: Alert. Mild distress from pain. NC. EOMI. Mucus membranes moist. Heart not tachy. No wheeze. ABd soft. Dressing intact Plan: Ortho to reeval today. Continue IV abx. <Jr Luciano - Last Filed: 06/17/19 13:29> (4) Diabetes Qualifiers: Diabetes mellitus type: type 2 Diabetes mellitus terminal superintendent insulin use: without terminal superintendent use Diabetes mellitus complication status: with hyperglycemia Qualified Code(s): E11.65 - Type 2 diabetes mellitus with hyperglycemia <Lj Anguiano - Last Filed: 06/17/19 17:48> (3) Cellulitis Qualifiers: Site of cellulitis: extremity Site of cellulitis of extremity: upper extremity Laterality: left Qualified Code(s): L03.114 - Cellulitis of left upper limb
--- NOTE | 2019-06-17 17:39 | Orthopedics Progress Note ---
Date of Encounter: 06/17/19 Time of Encounter: 19:35 Subjective Interval history: S: Resting in bed comfortably Pain improved Decreased sensation about median nerve distribution O: AFVSS Improving redness about the left volar wrist Neurovascularly intact to slight decreased sensation about the median nerve distribution CRP continuing to trend downward Cultures growing MRSA A: Post I&D of the left volar wrist P: At this point my recommendation is to continue IV antibiotics We will follow clinically. Objective Vital signs: Vital Signs Temp Pulse Resp BP Pulse Ox 06/17/19 16:20 98.1 F 84 16 180/73 97 06/17/19 10:59 98.3 F 123/80 96 06/17/19 09:14 95 06/17/19 07:14 99.1 F 83 16 128/76 95 06/17/19 04:06 98.3 F 88 15 141/73 96 06/16/19 23:10 98.9 F 80 16 137/80 95 06/16/19 19:42 98.5 F 83 16 146/79 95 Intake and Output 06/17/19 06/17/19 06/17/19 07:59 15:59 23:59 Intake Total 450 / 1400 600 / 1400 350 / 1400 Output Total 575 / 575 Balance -125 / 825 600 / 825 350 / 825 Intake: IV Fluids 450 / 800 350 / 800 Zosyn 3.375 GM In 0.9 % Sodium 200 / 300 100 / 300 Chloride (Mini-Bag +) 100 ML @ 25 mls/hr IVPB Q8H [facility] Rx#: [id number] Vancocin 1,500 MG In 0.9 % 250 / 500 250 / 500 Sodium Chloride 250 ML @ 166.67 mls/hr IVPB Q12H [facility] Rx#: [id number] Oral 600 / 600 Output: Urine 575 / 575 Other: Meal Lunch Percent of Meal Consumed 100% # Bowel Movement Diapers 1 Blood Glucose* 115 115 139 - Labs CBC & BMP: 06/17/19 03:54 06/17/19 03:54 Labs: Abnormal lab results WBC 11.8 K/mcL (4.3-11.1) H 06/16/19 05:18 Hgb 12.6 g/dL (12.9-16.9) L 06/17/19 03:54 MCH 27.6 pg (28.0-33.3) L 06/17/19 03:54 MCHC 31.1 g/dL (31.6-35.5) L 06/17/19 03:54 Neutrophils # 9.2 K/mcL (1.6-8.9) H 06/16/19 05:18 ESR 76 mm/hr (0-10) H 06/16/19 20:11 PT 12.3 Seconds (9.4-12.1) H 06/15/19 10:43 Chloride 109 mEq/L (98-107) H 06/17/19 03:54 Carbon Dioxide 20 mEq/L (23-29) L 06/17/19 03:54 Glucose 109 mg/dL (70-105) H 06/17/19 03:54 POC Glucose 129 mg/dL (70-99) H 06/16/19 16:46 Hemoglobin A1c 6.1 % (-5.6) H 06/15/19 10:43 AST 9 Units/L (13-39) L 06/17/19 03:54 C-Reactive Protein 166 mg/L (Less than 10) H 06/16/19 20:11 Consult Discharge Plan - Plan Referrals: Miri Cisneros, SCRAP CRUSHER [Primary Care Provider] -
[2019-06-18 02:04] LABS: BUN/Creatinine Ratio 15 (6-26); Blood Urea Nitrogen 15 mg/dL (6-20); Calcium 8.9 mg/dL (8.6-10.3); Carbon Dioxide 17 mEq/L (23-29); Chloride 110 mEq/L (98-107); Glucose 122 mg/dL (70-105); Osmolality,Calculated 286 (280-300); Potassium 4.2 mEq/L (3.5-5.1); Sodium 137 mEq/L (136-145); eGFR For African Americans > 60 (> 60); eGFR For Non-African Americans > 60 (> 60)
[2019-06-18 02:37] LABS: Basophils # 0.1 K/mcL (0.0-0.2); Eosinophils # 0.4 K/mcL (0.0-0.6); Eosinophils % 4.3 %; Hematocrit 40.1 % (37.5-50.1); Hemoglobin 12.8 g/dL (12.9-16.9); Immature Granulocytes % 0.8 % (0-4); Lymphocytes # 1.8 K/mcL (0.6-4.6); Lymphocytes % 21.2 %; Mean Corpuscular HGB Conc 31.9 g/dL (31.6-35.5); Mean Corpuscular Hemoglobin 27.6 pg (28.0-33.3); Mean Corpuscular Volume 86.4 fL (83.0-100.0); Mean Platelet Volume 11.6 fL (9.4-12.4); Monocytes # 0.7 K/mcL (0.0-1.3); Monocytes % 8.4 %; Neutrophils # 5.3 K/mcL (1.6-8.9); Platelet Count 246 K/mcL (140-400); Red Blood Count 4.64 M/mcL (4.19-5.50); Red Cell Distribution Width 12.9 % (11.5-14.5); Segmented Neutrophils % 64.3 %; White Blood Count 8.3 K/mcL (4.3-11.1)
[2019-06-18] MEDS: Piperacillin/Tazobactam 3.375 GM in 0.9 % Sodium Chloride Mini Bag 100 ML IVPB SCH ×2 (04:59→12:07)
[2019-06-18] MEDS: *HR* Heparin 5,000 UNIT/ML VIAL SQ SCH ×3 (05:00→21:21)
[2019-06-18] MEDS: Insulin LISPRO 300 UNITS/3 ML VIAL SQ SCH ×4 (08:09→21:39)
[2019-06-18] MEDS: Fluticasone Propionate Nasal 50 MCG/SPRAY BOTTLE NS PRN (08:09)
[2019-06-18] MEDS: Topiramate 25 MG TABLET PO SCH ×2 (08:09→21:20)
[2019-06-18] MEDS: Loratadine 10 MG TABLET PO SCH (08:09)
[2019-06-18] MEDS: BuPROPion XL (24 HR) 150 MG TABLET PO SCH (08:12)
--- NOTE | 2019-06-18 08:25 | Internal Med Progress Note ---
Hospitalist Progress Note - Encounter Date of Encounter: 06/18/19 Time of Encounter: 08:20 - Subjective Interval History: Mr Orozco is currently admitted for acute MRSA infection L arm. He remains moderate to high risk due to potential for worsening clinical status. Mr Orozco is doing better today. No fever or chills. Tolerating IV abx. No GI issues. - Exam Vitals: Temp Pulse Resp BP Pulse Ox 97.7 F 65 16 107/70 98 06/18/19 07:13 06/18/19 07:13 06/18/19 07:13 06/18/19 07:13 06/18/19 07:13 Exam: General: Alert and oriented. Comfortable at this time. Skin: Normal color, no rash, H: Normocephalic. EENT: EOMI, Mucus membranes moist. Cardiovascular: Normal S1 & S2, Pulse regular. Lungs: Normal breath sounds, no wheezes or crackles. Abdomen: Soft, non-tender, Normal bowel sounds. Extremities: Dressing intact L arm. No drainage. Neurological: Normal cognition and motor skills. Pulses: radial pulses normal +2. Rest of the physical exam is non contributory - Assessment and Plan (1) Suppurative tenosynovitis of flexor tendon of left hand Current Visit: Yes Status: Acute Assessment and Plan: Pt presented to ED from ortho office due to drainage and swelling from recent surgical wound. Exam consistent with tenosynovitis Pt is s/p drainage. Currently on IV abx. (2) Lymphedema of both lower extremities Current Visit: No Status: Chronic Assessment and Plan: Chronic issue (3) Cellulitis Current Visit: No Status: Acute Assessment and Plan: Associated with wound infection. Improving with IV abx. (4) Morbid obesity with BMI of 45.0-49.9, adult Current Visit: Yes Status: Chronic Assessment and Plan: Chronic issue (5) Diabetes Current Visit: Yes Status: Chronic Assessment and Plan: Continue monitoring with insulin coverage. - Time Spent with Patient Total time spent is greater than 50% in coordination of care (as documented) at patient's floor/unit and/or counseling patient: Internal Medicine: Result - Labs CBC & Chem 7: 06/18/19 02:26 06/18/19 01:00 Labs: Short CBC 06/18/19 Range/Units 02:26 WBC 8.3 (4.3-11.1) K/mcL Hgb 12.8 L (12.9-16.9) g/dL Hct 40.1 (37.5-50.1) % Plt Count 246 (140-400) K/mcL Neutrophils # 5.3 (1.6-8.9) K/mcL BMP 06/18/19 01:00 Sodium 137 Potassium 4.2 Chloride 110 H Carbon Dioxide 17 L BUN 15 Creatinine 0.99 Glucose 122 H Calcium 8.9 - ABG Interpretation ABG results: PT/INR, D-dimer PT 12.3 Seconds (9.4-12.1) H 06/15/19 10:43 Consult Discharge Plan - Plan Referrals: Miri Cisneros, FOREIGN DIPLOMAT [Primary Care Provider] - ____ (3) Cellulitis Qualifiers: Site of cellulitis: extremity Site of cellulitis of extremity: upper extremity Laterality: left Qualified Code(s): L03.114 - Cellulitis of left upper limb (5) Diabetes Qualifiers: Diabetes mellitus type: type 2 Diabetes mellitus fdc insulin use: without fdc use Diabetes mellitus complication status: with hyperglycemia Qualified Code(s): E11.65 - Type 2 diabetes mellitus with hyperglycemia
--- NOTE | 2019-06-18 08:41 | Orthopedics Progress Note ---
Date of Encounter: 06/18/19 Time of Encounter: 08:40 Subjective Interval history: S: Resting in bed comfortably Pain improved Improved sensation about the median nerve distribution. O: AFVSS Cellulitis is nearly resolved. Neurovascularly intact Cultures growing MRSA A: Post I&D of the left volar wrist P: Recommend switching to oral antibiotics today. Observe for 24 hours and oral antibiotics and discharged tomorrow if continuing to improve. I did recommend elevation and motion exercises. Objective Vital signs: Vital Signs Temp Pulse Resp BP Pulse Ox 06/18/19 07:58 98 06/18/19 07:13 97.7 F 65 16 107/70 98 06/18/19 04:00 98.1 F 56 16 109/67 97 06/17/19 22:57 97.9 F 84 14 163/94 97 06/17/19 19:58 97.8 F 97 14 143/76 98 06/17/19 16:20 98.1 F 84 16 180/73 97 06/17/19 10:59 98.3 F 123/80 96 06/17/19 09:14 95 Intake and Output 06/17/19 06/18/19 06/18/19 23:59 07:59 15:59 Intake Total 590 / 1640 350 / 350 Output Total 0 / 575 Balance 590 / 1065 350 / 350 Intake: IV Fluids 350 / 800 350 / 350 Zosyn 3.375 GM In 0.9 % Sodium 100 / 300 100 / 100 Chloride (Mini-Bag +) 100 ML @ 25 mls/hr IVPB Q8H [facility] Rx#: [id number] Vancocin 1,500 MG In 0.9 % 250 / 500 250 / 250 Sodium Chloride 250 ML @ 166.67 mls/hr IVPB Q12H [facility] Rx#: [id number] Oral 240 / 840 Output: Urine 0 / 575 Other: # Voids 1 # Bowel Movements 1 Blood Glucose* 152 106 - Labs CBC & BMP: 06/18/19 02:26 06/18/19 01:00 Labs: Abnormal lab results WBC 11.8 K/mcL (4.3-11.1) H 06/16/19 05:18 Hgb 12.8 g/dL (12.9-16.9) L 06/18/19 02:26 MCH 27.6 pg (28.0-33.3) L 06/18/19 02:26 MCHC 31.1 g/dL (31.6-35.5) L 06/17/19 03:54 Neutrophils # 9.2 K/mcL (1.6-8.9) H 06/16/19 05:18 ESR 74 mm/hr (0-10) H 06/17/19 17:38 PT 12.3 Seconds (9.4-12.1) H 06/15/19 10:43 Chloride 110 mEq/L (98-107) H 06/18/19 01:00 Carbon Dioxide 17 mEq/L (23-29) L 06/18/19 01:00 Glucose 122 mg/dL (70-105) H 06/18/19 01:00 POC Glucose 152 mg/dL (70-99) H 06/17/19 19:56 Hemoglobin A1c 6.1 % (-5.6) H 06/15/19 10:43 AST 9 Units/L (13-39) L 06/17/19 03:54 C-Reactive Protein 102 mg/L (Less than 10) H 06/17/19 17:38 Consult Discharge Plan - Plan Referrals: Miri Cisneros, HVAC JOURNEYMAN [Primary Care Provider] -
[2019-06-18] MEDS ORDERED: Aminoglycoside Consult 1 EACH MC ONE (11:17)
[2019-06-18 20:14] VITALS: BP 148/84
[2019-06-19] MEDS: *HR* Heparin 5,000 UNIT/ML VIAL SQ SCH (05:43)
[2019-06-19 06:10] LABS: White Blood Count 7.6 K/mcL (4.3-11.1)
[2019-06-19 06:11] LABS: Basophils # 0.1 K/mcL (0.0-0.2); Basophils % 0.8 %; Eosinophils # 0.4 K/mcL (0.0-0.6); Eosinophils % 5.1 %; Hematocrit 42.1 % (37.5-50.1); Hemoglobin 13.1 g/dL (12.9-16.9); Immature Granulocytes % 1.4 % (0-4); Lymphocytes # 1.8 K/mcL (0.6-4.6); Lymphocytes % 23.3 %; Mean Corpuscular HGB Conc 31.1 g/dL (31.6-35.5); Mean Corpuscular Hemoglobin 26.8 pg (28.0-33.3); Mean Corpuscular Volume 86.3 fL (83.0-100.0); Mean Platelet Volume 11.1 fL (9.4-12.4); Monocytes # 0.5 K/mcL (0.0-1.3); Monocytes % 7.1 %; Neutrophils # 4.8 K/mcL (1.6-8.9); Platelet Count 264 K/mcL (140-400); Red Blood Count 4.88 M/mcL (4.19-5.50); Red Cell Distribution Width 12.9 % (11.5-14.5); Segmented Neutrophils % 62.3 %
[2019-06-19 06:24] LABS: BUN/Creatinine Ratio 18 (6-26); Blood Urea Nitrogen 17 mg/dL (6-20); Calcium 9.4 mg/dL (8.6-10.3); Carbon Dioxide 20 mEq/L (23-29); Chloride 106 mEq/L (98-107); Glucose 107 mg/dL (70-105); Osmolality,Calculated 284 (280-300); Potassium 3.8 mEq/L (3.5-5.1); Sodium 136 mEq/L (136-145); eGFR For African Americans > 60 (> 60); eGFR For Non-African Americans > 60 (> 60)
--- NOTE | 2019-06-19 08:32 | Discharge Summary ---
- NOTES TO OUTPATIENT PROVIDER Notes to Outpatient Provider: Pt admitted due to infected CTS site. Went to OR and had debridement and wash out. Culture grew MRSA. He will follow up as outpatient. Orders not resulted at time of discharge: Pending orders 06/15/19 Culture,Anaerobic [RM] Routine 06/15/19 10:43 Culture,Blood [BC] Stat Date of Encounter: 06/19/19 Time of Encounter: 08:25 - Discharge Diagnosis (1) Suppurative tenosynovitis of flexor tendon of left hand Priority: Primary Status: Acute (2) Lymphedema of both lower extremities Priority: Secondary Status: Chronic (3) Cellulitis Priority: Secondary Status: Acute Qualifiers: Site of cellulitis: extremity Site of cellulitis of extremity: upper extremity Laterality: left Qualified Code(s): L03.114 - Cellulitis of left upper limb (4) Morbid obesity with BMI of 45.0-49.9, adult Priority: Secondary Status: Chronic Hospital course: Mr. Orozco is a 49 year old male with recent CTS release presented to ED from ortho office due to pain and swelling. Mr Orozco had recent CTS release. He had stitches removed and initially did well. He developed pain and swelling and was seen in office. Purulent drainage found. He was sent to ED and admitted. That evening he was taken to OR for debridement and wash out. Culture grew MRSA. He was maintained on IV abx. He had continued improvement in his arm. Today he is afebrile and ready for discharge home on PO abx with outpatient follow up. - Time Spent with Patient Total time spent providing and/or coordinating discharge services: 38min - Discharge Medications Prescriptions: New Doxycycline 100 mg PO BID #21 capsule Oxycodone HCl/Acetaminophen [Percocet 5-325 mg Tablet] 1 each PO Q6H PRN 5 Days #20 tablet PRN Reason: Severe Pain Continued Bupropion HCl [Wellbutrin Xl] 300 mg PO QAM Furosemide [Lasix] 80 mg PO BID PRN PRN Reason: Edema Lovastatin 40 mg PO HS metOLazone [Zaroxolyn] 2.5 mg PO DAILY PRN PRN Reason: SWELLING Omeprazole [PriLOSEC] 20 mg PO DAILY Potassium Chloride [Klor-Con 10] 20 meq PO DAILY Ramelteon [Rozerem] 8 mg PO HS PRN PRN Reason: Sleep Tizanidine HCl 4 mg PO TID PRN PRN Reason: Muscle Spasm Topiramate 50 mg PO BID Loratadine [Allergy Relief] 10 mg PO DAILY Ibuprofen 800 mg PO TID PRN PRN Reason: Pain Fluticasone Propionate Nasal [Flonase] 1 spray NS DAILY PRN PRN Reason: Allergy Symptoms Discontinued Cephalexin [Keflex] 500 mg PO Q6H Diclofenac Sodium [Voltaren] 1 applic TP QID PRN PRN Reason: pain Home Medications: Bupropion HCl [Wellbutrin Xl] 300 mg PO QAM 03/26/19 [History] Furosemide [Lasix] 80 mg PO BID PRN 03/26/19 [History] Lovastatin 40 mg PO HS 03/26/19 [History] Omeprazole [PriLOSEC] 20 mg PO DAILY 03/26/19 [History] Potassium Chloride [Klor-Con 10] 20 meq PO DAILY 03/26/19 [History] Ramelteon [Rozerem] 8 mg PO HS PRN 03/26/19 [History] Tizanidine HCl 4 mg PO TID PRN 03/26/19 [History] Topiramate 50 mg PO BID 03/26/19 [History] metOLazone [Zaroxolyn] 2.5 mg PO DAILY PRN 03/26/19 [History] Fluticasone Propionate Nasal [Flonase] 1 spray NS DAILY PRN 05/21/19 [History] Ibuprofen 800 mg PO TID PRN 05/21/19 [History] Loratadine [Allergy Relief] 10 mg PO DAILY 05/21/19 [History] Doxycycline 100 mg PO BID #21 capsule 06/19/19 [Rx] Oxycodone HCl/Acetaminophen [Percocet 5-325 mg Tablet] 1 each PO Q6H PRN 5 Days #20 tablet 06/19/19 [Rx] Allergies/Adverse Reactions: Allergy/AdvReac Type Severity Reaction Status Date / Time omeprazole Allergy Hives "in Verified 06/15/19 20:28 high doses" aspirin AdvReac Vomiting Verified 06/15/19 20:28 ibuprofen AdvReac Gastrointestinal Verified 06/15/19 20:28 Upset Date of admission: 06/15/19 11:59 Primary care physician: Miri Cisneros CNP Consults: 06/15/19 10:15 Consult to Orthopedic Surgery [CONS] Stat Consulting Provider: [facility] Reason for Consult: left carpal tunnel release infection: wiltfong, scheduled for surgery Time Notified: 10:16 Call Completed: Yes Discharging clinician: Lj Anguiano Anticipated date of discharge: 06/19/19 - Constitutional Vitals: Temp Pulse Resp BP Pulse Ox 98.2 F 79 15 148/84 97 06/18/19 20:12 06/18/19 20:12 06/18/19 20:12 06/18/19 20:12 06/18/19 20:12 General appearance: Present: A&O X 3, answers questions appropriately Exam: See below - Head Head exam: Present: normocephalic - Eye Eye exam: Present: EOMI - ENT ENT exam: Present: mucous membranes moist - Respiratory Respiratory exam: Present: CTAB. Absent: rales, rhonchi, wheezes - Cardiovascular Cardiovascular exam: Present: RRR. Absent: tachycardia - GI/Abdominal GI/Abdominal exam: Present: soft. Absent: tenderness - Extremities Exam Extremities exam: Present: warm. Absent: tenderness Additional comments: Dressing intact on LUE - Neurological Exam Neurological exam: Present: alert, oriented X3 - Skin Skin exam: Present: dry, warm - Patient Status Disposition: Home, Self-Care Condition: Good Functional capacity at discharge: independent ambulation Overall status at discharge: patient is progressing back to baseline - Discharge Instructions Follow Up With: Miri Cisneros CNP [Primary Care Provider] - Forms: Jury Excuse Additional Instructions: Wound care per Dr. Denney - Diet and Activity Activity: increase activity as tolerated (Per Dr. Denney) Diet: diabetic diet
[2019-06-19] MEDS: Insulin LISPRO 300 UNITS/3 ML VIAL SQ SCH (08:50)
[2019-06-19] MEDS: BuPROPion XL (24 HR) 150 MG TABLET PO SCH (09:00)
[2019-06-19] MEDS: Loratadine 10 MG TABLET PO SCH (09:01)
[2019-06-19] MEDS: Topiramate 25 MG TABLET PO SCH (09:01)
--- NOTE | 2019-06-19 09:52 | Orthopedics Progress Note ---
Date of Encounter: 06/19/19 Time of Encounter: 09:47 Subjective Interval history: S: Resting in bed comfortably Pain improved Improved sensation about the median nerve distribution. O: AFVSS Cellulitis has resolved. Mild serosanguineous drainage from the wound Improved motion of the digits. Neurovascularly intact Cultures growing MRSA A: Post I&D of the left volar wrist P: Doing very well clinically He continues to improve nicely With medically stable for discharge on oral antibiotics I did discuss daily dressing changes and warm, soapy soaks. Follow-up with me on for clinical reevaluation or sooner if needed Objective Vital signs: Vital Signs Temp Pulse Resp BP Pulse Ox 06/18/19 20:12 98.2 F 79 15 148/84 97 06/18/19 15:16 97.8 F 75 15 102/61 96 06/18/19 11:04 98.3 F 71 16 157/95 94 Intake and Output 06/18/19 06/19/19 06/19/19 23:59 07:59 15:59 Intake Total 350 / 1040 610 / 610 0 / 610 Output Total 0 / 175 175 / 175 Balance 350 / 915 610 / 435 -175 / 435 Intake: IV Fluids 350 / 800 250 / 250 Zosyn 3.375 GM In 0.9 % Sodium 100 / 300 Chloride (Mini-Bag +) 100 ML @ 25 mls/hr IVPB Q8H [facility] Rx#: [id number] Vancocin 1,500 MG In 0.9 % 250 / 500 250 / 250 Sodium Chloride 250 ML @ 166.67 mls/hr IVPB Q12H [facility] Rx#: [id number] Oral 360 / 360 0 / 360 Output: Urine 0 / 175 175 / 175 Other: Blood Glucose* 128 120 - Labs CBC & BMP: 06/19/19 05:47 06/19/19 05:47 Labs: Abnormal lab results WBC 11.8 K/mcL (4.3-11.1) H 06/16/19 05:18 Hgb 12.8 g/dL (12.9-16.9) L 06/18/19 02:26 MCH 26.8 pg (28.0-33.3) L 06/19/19 05:47 MCHC 31.1 g/dL (31.6-35.5) L 06/19/19 05:47 Neutrophils # 9.2 K/mcL (1.6-8.9) H 06/16/19 05:18 ESR 85 mm/hr (0-10) H 06/18/19 18:40 PT 12.3 Seconds (9.4-12.1) H 06/15/19 10:43 Chloride 110 mEq/L (98-107) H 06/18/19 01:00 Carbon Dioxide 20 mEq/L (23-29) L 06/19/19 05:47 Glucose 107 mg/dL (70-105) H 06/19/19 05:47 POC Glucose 128 mg/dL (70-99) H 06/18/19 20:27 Hemoglobin A1c 6.1 % (-5.6) H 06/15/19 10:43 AST 9 Units/L (13-39) L 06/17/19 03:54 C-Reactive Protein 61 mg/L (Less than 10) H 06/18/19 18:40 Consult Discharge Plan - Plan Additional Instructions: DISCHARGE INSTRUCTIONS Dr. Denney DISCHARGE DIAGNOSIS/PROCEDURE I&D of the left upper extremity ACTIVITY: Avoid aggressive activities with arm in which you were operated. Okay to move your fingers which will be good exercise. WOUND CARE: Once a day take down the dressing, and flushed the wound with warm, soapy water and rinse with clean water. Rewrapped with dry gauze, placed the splint back on, and use an [place] wrap to cover everything. DIET: Diabetic diet MEDICATIONS: Take her oral antibiotic as prescribed by the hospitalist. FOLLOW-UP Follow-up with Dr. Denney or Kim Gibbs PA-C at the office 06/24/19 for a post operative evaluation. Call the office at [phone] to schedule or c onfirm your appointment. WHEN TO CALL THE DOCTOR OR WHEN TO SEEK CARE BEFORE YOUR APPOINTMENT 1. Excess swelling or increased numbness not made better by elevating the hand and moving the fingers. 2. Uncontrolled pain. 3. A color change in your hand or fingers. 4. Worsening redness or drainage. 5. Fevers over 100.5 degrees F or 38.1 degrees C. 6. Any symptoms that bring concern to you. Referrals: Miri Cisneros CNP [Primary Care Provider] - Esteban Denney MD [Partnered Physician] - (Web request sent, please call patient) Prescriptions: Doxycycline 100 mg PO BID #21 capsule Transmission Status: Received by [facility]. Oxycodone HCl/Acetaminophen [Percocet 5-325 mg Tablet] 1 each PO Q6H PRN 5 Days #20 tablet PRN Reason: Severe Pain Prescription Printed
== END 2019-06-19 11:18 | disposition home or self-care (01) | DRG 857 ==
LOC: 3ANU 10:10 → EMEROOARM 10:10 → 3ANU 12:18
PROVIDERS: ADMIT Internal Medicine; ATTEND Internal Medicine

== ENCOUNTER 2021-12-28 09:04 | Inpatient (IN) ==
[2021-12-28 10:18] LABS: Basophils # 0.1 K/mcL (0.0-0.2); Basophils % 0.7 %; Eosinophils # 0.1 K/mcL (0.0-0.6); Eosinophils % 1.5 %; Hematocrit 45.4 % (37.5-50.1); Hemoglobin 14.6 g/dL (12.9-16.9); Immature Granulocytes % 0.8 % (0-4); Lymphocytes # 1.5 K/mcL (0.6-4.6); Lymphocytes % 19.6 %; Mean Corpuscular HGB Conc 32.2 g/dL (31.6-35.5); Mean Corpuscular Hemoglobin 27.9 pg (28.0-33.3); Mean Corpuscular Volume 86.6 fL (83.0-100.0); Mean Platelet Volume 12.2 fL (9.4-12.4); Monocytes # 0.6 K/mcL (0.0-1.3); Monocytes % 7.5 %; Neutrophils # 5.3 K/mcL (1.6-8.9); Platelet Count 198 K/mcL (140-400); Red Blood Count 5.24 M/mcL (4.19-5.50); Red Cell Distribution Width 13.6 % (11.5-14.5); Segmented Neutrophils % 69.9 %; White Blood Count 7.6 K/mcL (4.3-11.1)
[2021-12-28 10:50] LABS: Alanine Aminotransferase 34 Units/L (7-52); Albumin 4.8 g/dL (3.5-5.7); Albumin/Globulin Ratio 1.8 (1.1-2.2); Alkaline Phosphatase 83 Units/L (34-104); Aspartate Amino Transferase 29 Units/L (13-39); BUN/Creatinine Ratio 19 (6-26); Bilirubin,Direct 0.1 mg/dL (0.0-0.2); Bilirubin,Indirect 0.9 mg/dL (0.0-1.0); Blood Urea Nitrogen 18 mg/dL (6-20); Calcium 10.1 mg/dL (8.6-10.3); Carbon Dioxide 26 mEq/L (23-29); Chloride 99 mEq/L (98-107); Globulin 2.6 g/dL (2.4-3.5); Glucose 152 mg/dL (70-105); Osmolality,Calculated 289 (280-300); Potassium 3.6 mEq/L (3.5-5.1); Sodium 137 mEq/L (136-145); Total Protein 7.4 g/dL (6.4-8.9); eGFR For African Americans > 60 (> 60); eGFR For Non-African Americans > 60 (> 60)
[2021-12-28] MEDS ORDERED: Ondansetron 4 MG/2 ML VIAL IVP PRN (12:34)
[2021-12-28] MEDS ORDERED: Naloxone 0.4 MG/ML INJ IVP PRN (12:34)
[2021-12-28] MEDS ORDERED: metOLazone 2.5 MG TABLET PO PRN (12:45)
[2021-12-28] MEDS ORDERED: tiZANidine 4 MG TABLET PO PRN (12:45)
[2021-12-28] MEDS: lisinopriL 20 MG TABLET PO SCH (16:01)
[2021-12-28] MEDS: Pregabalin 50 MG CAPSULE PO SCH ×2 (16:02→20:27)
[2021-12-28] MEDS: Furosemide 40 MG/4 ML VIAL IVP SCH ×2 (16:02→20:27)
[2021-12-28] MEDS: Piperacillin/Tazobactam 3.375 GM in 0.9 % Sodium Chloride Mini Bag 100 ML IVPB SCH (16:02)
[2021-12-28] MEDS: Vancomycin 2,000 MG/520 ML IV.SOLN IVPB SCH (22:32)
[2021-12-29] MEDS: Piperacillin/Tazobactam 3.375 GM in 0.9 % Sodium Chloride Mini Bag 100 ML IVPB SCH ×3 (00:36→16:50)
[2021-12-29 02:50] LABS: Basophils # 0.1 K/mcL (0.0-0.2); Basophils % 0.8 %; Eosinophils # 0.2 K/mcL (0.0-0.6); Hematocrit 46.6 % (37.5-50.1); Hemoglobin 14.9 g/dL (12.9-16.9); Immature Granulocytes % 0.6 % (0-4); Lymphocytes # 1.9 K/mcL (0.6-4.6); Lymphocytes % 19.6 %; Mean Corpuscular Hemoglobin 27.5 pg (28.0-33.3); Mean Platelet Volume 12.3 fL (9.4-12.4); Monocytes # 0.9 K/mcL (0.0-1.3); Monocytes % 9.8 %; Neutrophils # 6.5 K/mcL (1.6-8.9); Platelet Count 211 K/mcL (140-400); Red Blood Count 5.42 M/mcL (4.19-5.50); Red Cell Distribution Width 13.7 % (11.5-14.5); Segmented Neutrophils % 67.2 %; White Blood Count 9.6 K/mcL (4.3-11.1)
[2021-12-29 03:09] LABS: BUN/Creatinine Ratio 19 (6-26); Blood Urea Nitrogen 21 mg/dL (6-20); Calcium 9.6 mg/dL (8.6-10.3); Carbon Dioxide 27 mEq/L (23-29); Chloride 98 mEq/L (98-107); Glucose 123 mg/dL (70-105); Magnesium 1.9 mg/dL (1.6-2.6); Osmolality,Calculated 284 (280-300); Phosphorous 4.4 mg/dL (2.7-4.5); Potassium 3.9 mEq/L (3.5-5.1); Sodium 135 mEq/L (136-145); eGFR For African Americans > 60 (> 60); eGFR For Non-African Americans > 60 (> 60)
[2021-12-29] MEDS: *HR* Enoxaparin 40 MG/0.4 ML SYRINGE SQ SCH (05:32)
[2021-12-29] MEDS: Loratadine 10 MG TABLET PO SCH (08:21)
[2021-12-29] MEDS: Pregabalin 50 MG CAPSULE PO SCH ×3 (08:21→21:40)
[2021-12-29] MEDS: lisinopriL 20 MG TABLET PO SCH (08:21)
[2021-12-29] MEDS: BuPROPion XL (24 HR) 150 MG TABLET PO SCH (08:22)
[2021-12-29] MEDS: Furosemide 40 MG/4 ML VIAL IVP SCH ×2 (08:22→21:39)
[2021-12-29] MEDS: *HR* OxyCODONE/APAP 7.5/325 TABLET PO PRN (08:30)
[2021-12-29] MEDS: Vancomycin 2,000 MG/520 ML IV.SOLN IVPB SCH ×2 (10:28→21:40)
[2021-12-30] MEDS: Piperacillin/Tazobactam 3.375 GM in 0.9 % Sodium Chloride Mini Bag 100 ML IVPB SCH ×4 (00:04→23:29)
[2021-12-30] MEDS: *HR* OxyCODONE/APAP 7.5/325 TABLET PO PRN (03:35)
[2021-12-30 04:49] LABS: Hematocrit 44.5 % (37.5-50.1); Hemoglobin 14.3 g/dL (12.9-16.9); Mean Corpuscular HGB Conc 32.1 g/dL (31.6-35.5); Mean Corpuscular Hemoglobin 27.8 pg (28.0-33.3); Mean Corpuscular Volume 86.6 fL (83.0-100.0); Mean Platelet Volume 12.3 fL (9.4-12.4); Platelet Count 208 K/mcL (140-400); Red Blood Count 5.14 M/mcL (4.19-5.50); Red Cell Distribution Width 13.7 % (11.5-14.5); White Blood Count 8.9 K/mcL (4.3-11.1)
[2021-12-30 05:07] LABS: BUN/Creatinine Ratio 19 (6-26); Blood Urea Nitrogen 24 mg/dL (6-20); Calcium 9.4 mg/dL (8.6-10.3); Carbon Dioxide 27 mEq/L (23-29); Chloride 100 mEq/L (98-107); Glucose 140 mg/dL (70-105); Osmolality,Calculated 288 (280-300); Potassium 3.6 mEq/L (3.5-5.1); Sodium 136 mEq/L (136-145); eGFR For African Americans > 60 (> 60); eGFR For Non-African Americans > 60 (> 60)
[2021-12-30] MEDS: *HR* Enoxaparin 40 MG/0.4 ML SYRINGE SQ SCH (05:30)
[2021-12-30] MEDS: Loratadine 10 MG TABLET PO SCH (09:15)
[2021-12-30] MEDS: Pregabalin 50 MG CAPSULE PO SCH ×3 (09:15→20:10)
[2021-12-30] MEDS: lisinopriL 20 MG TABLET PO SCH (09:15)
[2021-12-30] MEDS: BuPROPion XL (24 HR) 150 MG TABLET PO SCH (09:16)
[2021-12-30] MEDS: Vancomycin 2,000 MG/520 ML IV.SOLN IVPB SCH ×2 (09:16→21:48)
[2021-12-30] MEDS: Furosemide 40 MG/4 ML VIAL IVP SCH ×2 (09:17→20:09)
[2021-12-31] MEDS: *HR* Enoxaparin 40 MG/0.4 ML SYRINGE SQ SCH (05:20)
[2021-12-31] MEDS: Piperacillin/Tazobactam 3.375 GM in 0.9 % Sodium Chloride Mini Bag 100 ML IVPB SCH (09:01)
[2021-12-31] MEDS: Loratadine 10 MG TABLET PO SCH (09:02)
[2021-12-31] MEDS: lisinopriL 20 MG TABLET PO SCH (09:02)
[2021-12-31] MEDS: BuPROPion XL (24 HR) 150 MG TABLET PO SCH (09:03)
[2021-12-31] MEDS: Pregabalin 50 MG CAPSULE PO SCH (09:03)
[2021-12-31] MEDS: Furosemide 40 MG/4 ML VIAL IVP SCH (09:03)
[2021-12-31] MEDS ORDERED: Vancomycin 1,500 MG/265 ML IV.SOLN IVPB SCH (10:00)
[2021-12-31 10:45] VITALS: BP 144/84; PULSE 81; TEMP 98.2; O2SAT 94
== END 2021-12-31 14:05 | disposition home or self-care (01) | DRG 602 ==
LOC: 4WAOSI 09:04 → EMEROOARM 09:04 → 4WAOSI 14:16 → SUATTDRO 12-30 13:00
PROVIDERS: ADMIT Student in an Organized Health Care Education/Training Program; ATTEND Internal Medicine